=== PATIENT | female | born 1940 | race Caucasian/White ===

== ENCOUNTER 2017-12-20 00:07 | Inpatient (IN) | payer MEDICARE, MEDICAID ==
[~2017-12-20] VITALS: Ht 162.6 cm; Wt 70.8 kg
[2017-12-20] VITALS (7 sets, daily range): BP systolic 101–139; BP diastolic 46–64
[~2017-12-20 00:07] MED LIST: ACTOS15 MG ORAL; ATENOLOL50 MG ORAL; CEPHALEXIN500 MG ORAL; MELOXICAM15 MG PO; METHAZOLAMIDE50 MG ORAL; NAMENDA10 MG ORAL; NKM; OMEPRAZOLE20 M2 ORAL; PROMETHAZINE-C118 M1 ORAL; SERTRALINE HCL25 MG ORAL; SIMVASTATIN20 MG ORAL
[2017-12-20] MEDS ORDERED: HYDROmorphone 1mg/ml Carpuject IVP ONE ×2 (00:15→02:30)
--- NOTE | 2017-12-20 00:15 | Emergency Room Report ---
History of Present Illness General Source: Patient, EMS Present Illness HPI Is a 77-year-old female with history of hypertension and diabetes. She presents with chief complaint of left hip pain. Onset was acute. Occurred just prior to arrival. She was walking from one room to another when she slipped and fell onto her left hip. Unable to get up. EMS said leg is shortened and rotated. They gave her 8 mg morphine and is not helping. Also with head injury. Did not pass out. Pain is 10 out of 10. Worse with movement. Allergies: Coded Allergies: No Known Allergies (Unverified , 05/20/16) Patient History Past Medical History: see triage record, old chart reviewed, DM, HTN Past Surgical History: other Pertinent Family History: none Social History: Denies: smoking Now: No Immunizations: other Reviewed Nursing Documentation: PMH: Agreed; PSxH: Agreed Nursing Documentation-PMH Hx Cardiac Problems: Yes Hx Hypertension: Yes Hx Diabetes: Yes Hx Cancer: No Hx Neurological Problems: No Review of Systems Eye: Denies: eye pain, blurred vision ENT: Denies: ear pain, nose congestion, throat swelling Respiratory: Denies: cough, shortness of breath Cardiovascular: Denies: chest pain, palpitations Gastrointestinal: Denies: abdominal pain, diarrhea, nausea, vomiting Musculoskeletal: Reports: joint pain; Denies: back pain Skin: Denies: rash Neurological: Denies: headache, numbness Endocrine: Denies: increased thirst, increased urine Hematologic/Lymphatic: Denies: easy bruising All Other Systems: negative except mentioned in HPI Physical Exam Sp02 EP Interpretation: reviewed, normal General Appearance: well appearing, no apparent distress, alert Head: normocephalic, other - hematoma to back of head Eyes: bilateral eye PERRL, bilateral eye EOMI ENT: hearing grossly normal, normal pharynx Neck: full range of motion, supple, no meningismus Respiratory: chest non-tender, lungs clear, normal breath sounds Cardiovascular #1: regular rate, rhythm, no murmur Gastrointestinal: normal bowel sounds, non tender, no mass, no organomegaly, no bruit, non-distended Musculoskeletal: back normal, other - left leg is shortened and internally rotated. Tender over left hip. Psychiatric: mood/affect normal Skin: warm/dry Medical Decision Making Diagnostic Impression: Primary Impression: Intertrochanteric fracture of left femur Qualified Codes: S72.142A - Displaced intertrochanteric fracture of left femur , initial encounter for closed fracture Additional Impression: Head injury, acute Qualified Codes: S09.90XA - Unspecified injury of head, initial encounter ER Course Patient presents with a fall with a head injury. Unfortunately she also has a left hip fracture. We'll admit for surgical evaluation. I contacted Dr. Wiggins for admission and Dr. Millan for ortho eval. Lab Results Impression labs unremarkable EKG Diagnostic Results Rate: normal Rhythm: NSR ST Segments: no acute changes Rhythm Strip Diag. Results Rhythm Strip Time: 02:51 EP Interpretation: yes Rate: 82 Rhythm: NSR, no PVC's, no ectopy Chest X-Ray Diagnostic Results Chest X-Ray Diagnostic Results : Chest X-Ray Ordered: Yes # of Views/Limited/Complete: 1 View Indication: Shortness of Breath EP Interpretation: Yes Interpretation: no consolidation, no effusion, no pneumothorax, no acute cardiopulmonary disease Impression: No acute disease Other X-Ray Diagnostic Results Other X-Ray Diagnostic Results #1: X-Ray ordered: pelvis x-ray # of Views/Limited Vs Complete: 1 View Indication: Pain EP Interpretation: Yes Interpretation: no dislocation, no soft tissue swelling, other - left intertroch fx. Impression: Other - left hip frx Electronically Signed by: Denny Grullon mD Other X-Ray Diagnostic Results #2: X-Ray ordered: Left hip xrays # of Views/Limited Vs Complete: 3 View Indication: Pain EP Interpretation: Yes Interpretation: no dislocation, no soft tissue swelling, other - displaced left IT frx Impression: Other - left hip fx Electronically Signed by: Denny Grullon MD CT/MRI/US Diagnostic Results CT/MRI/US Diagnostic Results : Imaging Test Ordered: Ct head Impression read by radiologist. Negative. Status: improved Disposition: ADMITTED INPATIENT Condition: Serious DENNY GRULLON M.D. Dec 20, 2017 00:15
[2017-12-20 00:50] LABS: BASOPHILS % (AUTO) 1.4 % (0.0-2.0); EOSINOPHILS % (AUTO) 1.9 % (0.0-3.0); HEMATOCRIT 35.4 % (37.0-47.0); HEMOGLOBIN 11.6 G/DL (12.0-16.0); LYMPHOCYTES % (AUTO) 29.5 % (20.0-45.0); MEAN CORPUSCULAR VOLUME 88 FL (80-99); MONOCYTES % (AUTO) 7.4 % (1.0-10.0); NEUTROPHILS % (AUTO) 59.8 % (45.0-75.0); PLATELET COUNT 257 K/UL (150-450); RED BLOOD COUNT 4.02 M/UL (4.20-5.40); RED CELL DISTRIBUTION WIDTH 14.6 % (11.6-14.8); WHITE BLOOD COUNT 10.8 K/UL (4.8-10.8)
[2017-12-20 00:56] LABS: ANION GAP 7 mmol/L (5-15); BLOOD UREA NITROGEN 22 mg/dL (7-18); CALCIUM 8.2 MG/DL (8.5-10.1); CARBON DIOXIDE 28 MMOL/L (21-32); CHLORIDE 100 MMOL/L (98-107); CREATININE 0.9 MG/DL (0.55-1.30); POTASSIUM 4.7 MMOL/L (3.5-5.1); SODIUM 135 MMOL/L (136-145)
[2017-12-20 03:41] LABS: APPEARANCE,URINE CLEAR; BILIRUBIN, URINE NEGATIVE (NEGATIVE); COLOR,URINE PALE YELLOW; GLUCOSE, URINE (UA) NEGATIVE (NEGATIVE); KETONES,URINE NEGATIVE (NEGATIVE); LEUKOCYTE ESTERASE ,URINE NEGATIVE (NEGATIVE); NITRITE,URINE NEGATIVE (NEGATIVE); PH,URINE 6.5 (4.5-8.0); PROTEIN,URINE NEGATIVE (NEGATIVE); UROBILINOGEN,URINE NORMAL MG/DL (0.0-1.0)
[2017-12-20] MEDS ORDERED: Promethazine/Codeine 5ml UD ORAL PRN (06:00)
[2017-12-20] MEDS ORDERED: Cephalexin 500mg cap ORAL SCH (06:00)
[2017-12-20] MEDS: D5NS 1,000 ML IV SCH ×2 (06:24→19:56)
[2017-12-20] MEDS: NovoLOG Insulin Flexpen SUBQ SCH ×4 (06:58→21:08)
--- NOTE | 2017-12-20 08:15 | History and Physical Report ---
DATE OF ADMISSION: 12/20/2017 CHIEF COMPLAINT: Left hip fracture. HISTORY OF PRESENT ILLNESS: The patient is a 77-year-old female. She has a history of hypertension and diabetes, was ambulated into the bathroom when she felt dizzy and fell. She had pain in the left hip after she fell and presented to the emergency room. On evaluation there, she had a x-ray showed intertrochanteric fracture of the left hip. The patient did require pain medications, Orthopedics consultation was obtained. The patient is now admitted for further surgical evaluation. PAST MEDICAL HISTORY: As above. PAST SURGICAL HISTORY: Includes prior left knee surgery. CURRENT MEDICATIONS: Reconciled and reviewed. ALLERGIES: None. FAMILY HISTORY: None. SOCIAL HISTORY: Negative for tobacco, ethanol, or drugs. REVIEW OF SYSTEMS: GENERAL: No fever or chills. HEENT: No headaches or visual changes. CARDIOPULMONARY: No chest pain or shortness of breath. GASTROINTESTINAL: No nausea or vomiting. GENITOURINARY: No urgency or frequency. MUSCULOSKELETAL: Positive left hip pain. NEUROLOGIC: No evidence of seizures. PHYSICAL EXAMINATION: VITAL SIGNS: Temperature 98, pulse 70, respirations 16, and blood pressure 136/52. GENERAL: The patient is well-developed, well-nourished, in no apparent distress. She is awake, alert, and oriented x4. NECK: Supple. There is no lymphadenopathy. No jugular venous distention. HEART: Regular rate and rhythm. No murmurs, rubs, or gallops. LUNGS: Clear to auscultation bilaterally. ABDOMEN: Soft, nontender, and nondistended. EXTREMITIES: Without clubbing or cyanosis. The patient has severe pain and has minimal range of motion in the left hip due to pain. LABORATORY AND DIAGNOSTIC DATA: Labs, white count was 10, hemoglobin 11, hematocrit 35, and platelets 257. Sodium 135 and potassium 4.7. Troponin 0.001. Coags are normal. EKG showed sinus rhythm without any acute ST-T wave changes. Urinalysis is negative. ASSESSMENT: This is a pleasant female with history of diabetes and hypertension, admitted with mechanical fall and a left hip fracture. 1. Possible left hip fracture. 2. Diabetes. 3. Hypertension. PLAN: Continue outpatient cardiac regimen. Monitor blood sugars. The patient is medically stable for surgery if needed. She has average risk for age and sex. The patient received DVT prophylaxis and she should be continued on her antihypertensive regimen. Monitor blood sugars closely in the perioperative period. Basim Wiggins M.D. DR: BUCK JOB#: [id number] CC:
[2017-12-20] MEDS: Meloxicam 15 MG TAB ORAL SCH (08:40)
[2017-12-20] MEDS: Sertraline 50mg tab ORAL SCH (08:41)
[2017-12-20] MEDS: Memantine 10mg tab ORAL SCH ×2 (08:41→18:04)
--- NOTE | 2017-12-20 08:59 | Consultation ---
Consult Note Consult Note Patient seen/evaluated. Left IT hip fracture. Plan on ORIF in am. 2D echo performed in 2016 with good EF. No significant interval Cardiac change. Appreciate medicine optimizing the patient and clearing for surgery. Full consult dictated. Thank you PAVEL ROGERS Dec 20, 2017 08:59
--- NOTE | 2017-12-20 09:20 | Diagnostic Imaging Report ---
Indication: Head trauma. Headache Technique: Contiguous 5 mm thick transaxial imaging of the head obtained in a Siemens Sensation [address] scanner. Soft tissue and bone windows generated. Automatic Exposure Control was utilized. Total Dose length Product (DLP): 1309.[address] Dose Index Volume (CTDIvol): 70.38 mGy Comparison: none Findings: The size and configuration of the cortical sulci, basal cisterns, and ventricles are within normal limits for age. There is no mass effect, midline shift, or edema identified. There is no evidence of acute hemorrhage or abnormal intra-axial or extra-axial fluid collections. The bones and soft tissues are unremarkable. Impression: No mass effect, edema or acute bleed. [facility] has communicated the preliminary results to the Emergency Department. Their findings are largely concordant with this report. The CT scanner at [facility] is accredited by the [employer] and the scans are performed using dose optimization techniques as appropriate to a performed exam including Automatic Exposure control.
--- NOTE | 2017-12-20 09:37 | Diagnostic Imaging Report ---
Indications: hip pain Findings: Two views of the left hip and pelvis were obtained. There is acute trochanteric fracture of the left hip with involvement of the greater trochanter in a comminuted fashion. Bones are osteopenic. The left hip joint appears abnormally narrowed and. There is remodeling and deformity of the femoral head which could be on the basis of previous AVN. There is a slight acetabular protrusio. The right hip is unremarkable. The sacrum is largely obscured by bowel gas. Vascular calcifications are present. IMPRESSION: Comminuted intertrochanteric fracture of the left hip
--- NOTE | 2017-12-20 09:38 | Diagnostic Imaging Report ---
Indication: Chest pain and trauma Comparison: 05/24/2016 A single view chest radiograph was obtained. Findings: Interstitial edema is suspected. The heart is enlarged. Aorta is moderately calcified. Bones are osteopenic. IMPRESSION: Suspect CHF. Please correlate clinically
--- NOTE | 2017-12-20 10:50 | Diagnostic Imaging Report ---
Indication: Cough Comparison: 12/30/2017 at 01:19 A single view chest radiograph was obtained. Findings: No definite infiltrate or pulmonary vascular congestion identified currently. Vascular edema has resolved since the last study. The heart is enlarged. The aorta is mildly enlarged consistent with atherosclerotic vascular disease. The bones are osteopenic. Impression: No acute disease
--- NOTE | 2017-12-20 14:59 | Anethesia Preoperative Eval ---
Anesthesia Pre-op PMH/ROS General Date of Evaluation: Dec 20, 2017 Time of Evaluation: 11:10 Anesthesiologist: Justyna ASA Score: ASA 3 Mallampati Score Class I : Soft palate, uvula, fauces, pillars visible Class II: Soft palate, uvula, fauces visible Class III: Soft palate, base of uvula visible Class IV: Only hard plate visible Mallampati Classification: Class II Surgeon: Monty Diagnosis: Left hip fracture Surgical Procedure: ORIF left hip Family History: no anesthesia problems Allergies: Coded Allergies: No Known Allergies (Unverified , 05/20/16) Medications: see eMAR Past Medical History Cardiovascular: Reports: HTN; Denies: CAD, [place], valve dz, arrhythmia, other Pulmonary: Denies: asthma, COPD, PAM, other Gastrointestinal/Genitourinary: Denies: GERD, CRI, ESRD, other Neurologic/Psychiatric: Reports: dementia; Denies: CVA, depression/anxiety, TIA, other Endocrine: Reports: DM; Denies: hypothyroidism, steroids, other HEENT: Reports: cataract (L), cataract (R) Hematology/Immune: Denies: anemia, DVT, bleeding disorder, other Musculoskeletal/Integumentary: Denies: OA, RA, DJD, DDD, edema, other PMH Narrative: D, HTN, hypercholesterolemia PSxH Narrative: Varicose vein stripping, eye surgery, knee surgery as per report Anesthesia Pre-op Phys. Exam Physician Exam Last Vital Signs Date Time Temp Pulse Resp B/P (MAP) Pulse Ox O2 Delivery O2 Flow Rate FiO2 12/20/17 12:01 98.5 62 20 101/46 94 Room Air 98.5 Constitutional: NAD Neurologic: CN 2-12 intact Cardiovascular: RRR, no M/R/G Respiratory: CTA Gastrointestinal: S/NT/ND Airway Exam Mallampati Score: Class II MO: full ROM: full Dentures: upper Anesthesia Pre-op A/P Labs Hematology Test 12/20/17 00:36 White Blood Count 10.8 K/UL (4.8-10.8) Red Blood Count 4.02 M/UL (4.20-5.40) L Hemoglobin 11.6 G/DL (12.0-16.0) L Hematocrit 35.4 % (37.0-47.0) L Mean Corpuscular Volume 88 FL (80-99) Mean Corpuscular Hemoglobin 28.7 PG (27.0-31.0) Mean Corpuscular Hemoglobin Concent 32.7 G/DL (32.0-36.0) Red Cell Distribution Width 14.6 % (11.6-14.8) Platelet Count 257 K/UL (150-450) Mean Platelet Volume 6.4 FL (6.5-10.1) L Neutrophils (%) (Auto) 59.8 % (45.0-75.0) Lymphocytes (%) (Auto) 29.5 % (20.0-45.0) Monocytes (%) (Auto) 7.4 % (1.0-10.0) Eosinophils (%) (Auto) 1.9 % (0.0-3.0) Basophils (%) (Auto) 1.4 % (0.0-2.0) Coagulation Test 12/20/17 00:36 Prothrombin Time 10.0 SEC (9.30-11.50) Prothromb Time International Ratio 1.0 (0.9-1.1) Activated Partial Thromboplast Time 29 SEC (23-33) Chemistry Test 12/20/17 00:36 Sodium Level 135 MMOL/L (136-145) L Potassium Level 4.7 MMOL/L (3.5-5.1) Chloride Level 100 MMOL/L (98-107) Carbon Dioxide Level 28 MMOL/L (21-32) Anion Gap 7 mmol/L (5-15) Blood Urea Nitrogen 22 mg/dL (7-18) H Creatinine 0.9 MG/DL (0.55-1.30) Estimat Glomerular Filtration Rate mL/min (>60) Glucose Level 130 MG/DL (74-106) H Hemoglobin A1c 6.6 % (4.3-6.0) H Calcium Level 8.2 MG/DL (8.5-10.1) L Troponin I 0.001 ng/mL (0.000-0.056) Risk Assessment & Plan Assessment: HTN, DM female for ORIF left hip Plan: GA, LMA vs ETT. Atilio Jansen MD Dec 20, 2017 14:59
--- NOTE | 2017-12-20 19:30 | Consultation ---
DATE OF CONSULTATION: 12/20/2017 ORTHOPEDIC CONSULTATION CONSULTING PHYSICIAN: Riley Millan M.D. REQUESTING PHYSICIAN: Basim Wiggins M.D. REASON FOR CONSULTATION: Left hip fracture. BRIEF HISTORY: The patient is a pleasant 77-year-old female, who sustained a mechanical fall and had a left hip intertrochanteric fracture and she was admitted to [facility] for definitive care. She was seen by Internal Medicine and she was cleared for surgery. She has a 2D echo from 2016 which shows 55% to 60% ejection fraction and no ventricular dysfunction. PAST MEDICAL HISTORY: Significant for history of hypertension and diabetes. PAST SURGICAL HISTORY: Includes left prior knee surgery. MEDICATIONS: Please see chart. This was reviewed and reconciled. ALLERGIES: No known drug allergies. SOCIAL HISTORY: She does not smoke or drink. She was independent ambulator prior to fall. PHYSICAL EXAMINATION: GENERAL: She is a pleasant lady, cooperative with examination. MUSCULOSKELETAL: The left leg is shortened and rotated. She has some pain with flexion and extension. She is able to wiggle her toes. There is no skin breakdown. DIAGNOSTIC DATA: X-ray of left hip was reviewed. There is evidence of intertrochanteric fracture. 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 IMPRESSION: Left hip intertrochanteric fracture. PLAN: At this time, I discussed with the patient. I explained to her my findings. I recommend we proceed with left hip open reduction and internal fixation with a short gamma nail. Risks, benefits, and complications of surgery were discussed with her. She understood and agreed with the treatment plan. The risk of infection, bleeding, neurovascular complication, possible malunion, possible nonunion, possible need for further surgery down the line, and other complication was discussed with her and she understood and agreed with treatment plan. We will go ahead and proceed with surgery tomorrow once she is cleared. All questions were answered.. Riley Millan M.D. DR: Sangita JOB#: [id number] CC:
[2017-12-20] MEDS: Latanoprost 0.005% Opth 2.5ml Soln BOTH EYES SCH (21:06)
[2017-12-21] VITALS (13 sets, daily range): BP systolic 106–169; BP diastolic 51–81
[2017-12-21] MEDS: NovoLOG Insulin Flexpen SUBQ SCH ×4 (06:30→21:11)
[2017-12-21] MEDS: D5NS 1,000 ML IV SCH (06:35)
--- NOTE | 2017-12-21 07:27 | General Progress Note ---
Assessment/Plan Problem List: (1) Hypertension ICD Codes: I10 - Essential (primary) hypertension SNOMED: 77403451 (2) Diabetes ICD Codes: E11.9 - Type 2 diabetes mellitus without complications SNOMED: 27721383 Qualifiers: (3) Intertrochanteric fracture of left femur ICD Codes: S72.142A - Displaced intertrochanteric fracture of left femur, initial encounter for closed fracture SNOMED: 467185797, [id number] Qualifiers: Qualified Codes: S72.142A - Displaced intertrochanteric fracture of left femur, initial encounter for closed fracture Status: stable Assessment/Plan stable for surgery cont bp rx cont diabetes rx pain control Subjective ROS Limited/Unobtainable: No Constitutional: Reports: no symptoms HEENT: Reports: no symptoms Cardiovascular: Reports: no symptoms Respiratory: Reports: no symptoms Gastrointestinal/Abdominal: Reports: no symptoms Genitourinary: Reports: no symptoms Neurologic/Psychiatric: Reports: no symptoms Endocrine: Reports: no symptoms Hematologic/Lymphatic: Reports: no symptoms Allergies: Coded Allergies: No Known Allergies (Unverified , 05/20/16) All Systems: reviewed and negative except above Subjective x/o hip pain. no cp/sob. npo for surgery today Objective Last 24 Hour Vital Signs Date Time Temp Pulse Resp B/P (MAP) Pulse Ox O2 Delivery O2 Flow Rate FiO2 12/21/17 05:28 98.8 71 18 119/59 92 Room Air 98.8 12/20/17 20:00 99.7 68 18 139/64 94 Room Air 99.7 12/20/17 18:29 97.6 12/20/17 16:00 97.6 64 20 114/55 94 Room Air 97.6 12/20/17 12:01 98.5 62 20 101/46 94 Room Air 98.5 12/20/17 08:41 72 131/54 12/20/17 07:54 98.3 72 20 131/54 94 Room Air 98.3 Intake and Output 12/20/17 12/21/17 19:00 07:00 Intake Total 75 ml 1550 ml Output Total 1800 ml Balance 75 ml -250 ml Intake Oral 800 ml IV Total 75 ml 750 ml Output Urine Total 1800 ml Height (Feet): 5 Height (Inches): 4.00 Weight (Pounds): 156 General Appearance: WD/WN, alert Cardiovascular: regular rhythm Respiratory/Chest: lungs clear, normal breath sounds, no respiratory distress Abdomen: normal bowel sounds, non tender, soft, no organomegaly Neurologic: upkeep mechanic II-XII grossly normal, alert, oriented x 3, responsive CELSA BELTRAN Dec 21, 2017 07:27
[2017-12-21] MEDS: Memantine 10mg tab ORAL SCH ×2 (09:00→17:37)
[2017-12-21] MEDS: Sertraline 50mg tab ORAL SCH (09:00)
[2017-12-21] MEDS: Meloxicam 15 MG TAB ORAL SCH (09:00)
[2017-12-21] MEDS ORDERED: Sterile Water Irrig 1000ml IRRIG ONE (12:00)
[2017-12-21] MEDS ORDERED: LR 1000ml ONE (12:00)
[2017-12-21] MEDS ORDERED: fentaNYL 100 mcg/2 mL IV ONE (12:00)
[2017-12-21] MEDS ORDERED: Propofol 200mg/20ml IV ONE (12:00)
[2017-12-21] MEDS ORDERED: Midazolam 2mg/2ml Inj ONE (12:00)
--- NOTE | 2017-12-21 12:10 | Pre-Procedure Note/Attestation ---
Pre-Procedure Note/Attestation Complete Prior to Procedure Planned Procedure: left Procedure Narrative: left hip ORIF Indications for Procedure Pre-Operative Diagnosis: Left hip IT fracture Attestation I attest that I discussed the nature of the procedure; its benefits; risks and complications; and alternatives (and the risks and benefits of such alternatives ), prior to the procedure, with the patient (or the patient's legal in store representative). I attest that, if there was a reasonable possibility of needing a blood transfusion, the patient (or the patient's legal in store representative) was given the [facility] standardized written summary, pursuant to the Atilio Angeline Blood Safety Act ([place] Health and Safety Code # 1645, as amended). I attest that I re-evaluated the patient just prior to the surgery and that there has been no change in the patient's H&P, except as documented below: NONE PAVEL ROGERS Dec 21, 2017 12:10
[2017-12-21] MEDS ORDERED: Norco 5mg/325mg tab ORAL PRN (12:15)
[2017-12-21] MEDS ORDERED: Milk of Magnesia 30ml Ud ORAL PRN (12:15)
[2017-12-21] MEDS: Docusate 100mg cap ORAL SCH ×2 (13:00→17:37)
[2017-12-21] MEDS: LR 1000ml 1,000 ML IVLG SCH (13:14)
[2017-12-21] MEDS ORDERED: Midazolam 2mg/2ml Inj IVP PRN (13:15)
[2017-12-21] MEDS ORDERED: Ketorolac 30mg Inj IV PRN (13:15)
[2017-12-21] MEDS ORDERED: DiphenhydrAMINE 50mg/ml Inj IVP PRN (13:15)
--- NOTE | 2017-12-21 13:37 | Brief Operative Note ---
Immediate Post Operative Note Operative Note Chief Complaint: left hip pain Pre-op Diagnosis: left hip fx Procedure: left hip ORIF Post-op Diagnosis: same as pre-op Findings: consistent w/pre-op dx studies Surgeon: md steven [employer] Commissioner: tawana buchanan Anesthesiologist: md will Anesthesia: general Specimen: none Complications: none Condition: stable Fluids: ns Estimated Blood Loss: minimal Drains: none Implant(s) used?: Yes - DULCE Oneill Dec 21, 2017 13:37
--- NOTE | 2017-12-21 13:54 | Immediate Post-Op Evaluation ---
Immediate Post-Op Evalulation Immediate Post-Op Evalulation Procedure: ORIF of L femoral Fx. Date of Evaluation: Dec 21, 2017 Time of Evaluation: 13:53 IV Fluids: 800 Blood Products: none Estimated Blood Loss: 100 Urinary Output: 200 Blood Pressure Systolic: 156 Blood Pressure Diastolic: 76 Pulse Rate: 62 Respiratory Rate: 22 O2 Sat by Pulse Oximetry: 99 Temperature (Fahrenheit): 98.6 Pain Score (1-10): 2 Nausea: No Vomiting: No Complications none Patient Status: reacts, patent, none Hydration Status: adequate MIKAYLA MCKAY M.D. Dec 21, 2017 13:54
[2017-12-21] MEDS: Hydromorphone 0.5mg/0.5ml inj IVP PRN ×2 (14:05→14:25)
[2017-12-21] MEDS ORDERED: Bupivacaine 0.5% Inj 30 ml vial INJ ONE (14:06)
[2017-12-21] MEDS ORDERED: NeoSporin Gu Irrig 1ml Amp IRRIG ONE (14:06)
[2017-12-21] MEDS ORDERED: Bacitracin 50000 Units Vial IRRIG ONE (14:06)
--- NOTE | 2017-12-21 14:52 | Diagnostic Imaging Report ---
Indication: Fracture, intraoperative imaging Technique: Intraoperative images Comparison: 12/20/2017 Findings: Intraoperative images document surgical repair with compression screw and medullary ara of previously described left hip intertrochanteric fracture Impression: Intraoperative imaging, as described
[2017-12-21] MEDS ORDERED: D5NS 1000ml IV ONE (15:17)
--- NOTE | 2017-12-21 15:36 | Diagnostic Imaging Report ---
Indication: Postoperative, status post post ORIF Technique: One view of the pelvis Comparison: 12/20/2017 Findings: Medullary ara and compression screw are seen reducing previously demonstrated left hip intertrochanteric fracture. Hardware appears well aligned. There are degenerative changes of left hip joint. Retained air from the surgical exposure seen within soft tissues. Batista catheter is present Impression: Postoperative left hip, no unusual features
[2017-12-21] MEDS: D5 1/2NS w/KCl 20mEq 1,000 ML IV SCH (16:02)
--- NOTE | 2017-12-21 16:45 | Operative Note - Dictated ---
DATE OF OPERATION: 12/21/2017 PREOPERATIVE DIAGNOSES: 1. Left hip peritrochanteric fracture with fracture of the greater trochanter. 2. Left hip arthritis. POSTOPERATIVE DIAGNOSES: 1. Left hip peritrochanteric fracture with fracture of the greater trochanter. 2. Left hip arthritis. PROCEDURE: Left hip open reduction and internal fixation using a short 125-degree gamma nail with distal screw fixation. SURGEON: Riley Millan M.D. ASSOCIATE RESEARCH SCIENTIST: Adriane Messer PA-C. ANESTHESIOLOGIST: Dr. Seymour. ANESTHESIA: Spinal anesthesia. ESTIMATED BLOOD LOSS: Less than 150 mL. COMPLICATIONS: None. BRIEF HISTORY: The patient is a pleasant 77-year-old female who has had ongoing left hip pain after a fall. She was ambulatory prior to that. She did not seem to have significant symptoms with left hip prior to this fall. After full discussion of the risks and benefits of the surgery and complications associated with it including infection, bleeding, neurovascular complication, possible malunion, possible nonunion, most likely need for total hip arthroplasty down the line after the fracture is healed if she is symptomatic in left hip, she opted for surgical treatment as described above. It should be noted that this is a total hip arthroplasty. Primary total hip arthroplasty was considered as part of this operation, however, due to the significant peritrochanteric nature of the fracture and the complexity of the total hip arthroplasty with this type of fracture, it was chosen to proceed with an ORIF and allow the bones to heal, and schedule elective total hip arthroplasty down the line if the patient is symptomatic of left hip and once the fracture is completely healed, approximately 6 to 12 months after the fracture's fixation. OPERATIVE PROCEDURE: The patient was brought to the operating table and was placed supine. All pressure points were well padded. Spinal anesthesia was induced. The patient was placed on the fracture table with the right leg in a well-leg rod and left leg in traction. Left leg was placed in traction and was adducted and slightly internally rotated. Image intensifier was brought in and the fracture was reduced anatomically. At this point, a time-out was performed, preoperative antibiotics were given, and the standard incision was made 1.5 cm proximal to the greater trochanter. The incision was taken through subcutaneous tissue and the gluteal fascia was opened. At this point, a K-wire was placed through the tip of the greater trochanter into the neck, into the shaft of the femur. An entry was obtained through the greater trochanter into the metaphyseal region, diaphyseal region. At this point, the image intensifier was used to assure that the guidewire was in place and the position of the entry point was checked and rechecked both on AP and lateral, and appeared to be perfect. At this point, a 125-degree short gamma nail was then placed. The nail was seated well. At this point, a guidewire was placed through the lateral cortex through the nail through the neck into the head. The position was checked on AP and lateral, and appeared to be perfect. Measurements were made. A 95-mm lag screw appeared to be the right size. A step drill was used to drill and 95-degree lag screw was placed in and was locked in using a setscrew proximally. The setscrew was then turned half a turn to allow for compression. Once this was completed, a distal locking screw was placed through the jig and a 32.5 mm screw was then placed in without any complication through a separate stab wound incision. Once this was completed, wounds were thoroughly irrigated, final images were obtained and the fracture was then easily reduced anatomically, and all the hardware were in excellent position. AP and lateral views were obtained and the nail was in perfect position and lag screws were in great position. Locking screws were in good position. The fracture was reduced anatomically. The wounds were thoroughly irrigated using copious amount of fluid. The gluteal fascia was closed using #1 Vicryl suture. Subcutaneous tissue was closed using 2-0 Vicryl suture. Skin was closed using 3-0 Monocryl suture. Sterile dressing was applied. The patient tolerated the procedure well without any complication, was taken to recovery room in stable condition. All lap counts and instrument counts were correct. Riley Millan M.D. DR: Sangita JOB#: [id number] CC:
[2017-12-21] MEDS: HYDROcodone/Acetamin 7.5/325 tab ORAL PRN (21:04)
[2017-12-21] MEDS: Latanoprost 0.005% Opth 2.5ml Soln BOTH EYES SCH (21:05)
[2017-12-21] MEDS: ceFAZolin sod 2 GM in D5W 110 ML IV SCH (21:05)
[2017-12-22] VITALS (7 sets, daily range): BP systolic 96–126; BP diastolic 43–84
[2017-12-22] MEDS: D5 1/2NS w/KCl 20mEq 1,000 ML IV SCH (04:53)
[2017-12-22] MEDS: ceFAZolin sod 2 GM in D5W 110 ML IV SCH (04:58)
[2017-12-22] MEDS: NovoLOG Insulin Flexpen SUBQ SCH ×4 (06:40→21:50)
--- NOTE | 2017-12-22 08:14 | Orthopedic Progress Note ---
Orthopedic - Progress Note Subjective Symptoms: improved Objective Vital Signs Last 24 Hour Vital Signs Date Time Temp Pulse Resp B/P (MAP) Pulse Ox O2 Delivery O2 Flow Rate FiO2 12/22/17 08:00 99.6 68 17 116/58 98 Room Air 99.6 12/22/17 04:00 98.4 66 18 115/59 97 Room Air 98.4 12/22/17 00:00 97.8 66 17 96/52 98 Room Air 97.8 12/21/17 20:00 99.6 62 18 107/59 94 Room Air 99.6 12/21/17 18:00 98.0 63 20 118/64 96 98.0 12/21/17 16:00 98.0 58 18 114/51 99 Room Air 98.0 12/21/17 15:00 98.9 61 17 109/61 99 98.9 12/21/17 14:50 98.6 12/21/17 14:40 98.6 60 15 136/61 100 Nasal Cannula 3.0 98.6 12/21/17 14:35 98.6 12/21/17 14:26 98.5 12/21/17 14:25 64 11 169/81 99 Nasal Cannula 3.0 12/21/17 14:25 98.5 12/21/17 14:15 67 16 137/58 99 Nasal Cannula 3.0 12/21/17 14:05 98.5 12/21/17 14:05 63 13 138/56 98 Nasal Cannula 3.0 12/21/17 13:54 62 16 146/55 98 Nasal Cannula 3.0 12/21/17 13:54 209.5 62 22 99 12/21/17 13:49 56 15 123/52 100 Simple Mask 6.0 12/21/17 13:44 98.4 57 13 158/67 100 Simple Mask 6.0 98.4 I&O Intake and Output 12/21/17 12/22/17 19:00 07:00 Intake Total 1802.5 ml 1175 ml Output Total 550 ml 500 ml Balance 1252.5 ml 675 ml Intake Oral 240 ml 240 ml IV Total 1562.5 ml 935 ml Output Urine Total 450 ml 500 ml Estimated Blood Loss 100 ml Wound: clean, dry, intact Drains: none Neuro Status: normal Vascular Status: normal Additional Comments xray reviewed Assessment Post-op Diagnosis POD 1 Procedure Performed left hip ORIF Plan Plan: PT, discharge plan - f/u Dr. Millan as outpt in 2 weeks DULCE BOWEN Dec 22, 2017 08:14
--- NOTE | 2017-12-22 08:37 | 48 Hour Post Anesthesia Eval ---
Post Anesthesia Evaluation Procedure: ORIF of L femoral Fx. Date of Evaluation: Dec 22, 2017 Time of Evaluation: 08:10 Blood Pressure Systolic: 116 0: 58 Pulse Rate: 68 Respiratory Rate: 17 Temperature (Fahrenheit): 99.6 O2 Sat by Pulse Oximetry: 98 Airway: patent Nausea: No Vomiting: No Pain Intensity: 0 Hydration Status: adequate Cardiopulmonary Status: at baseline Mental Status/LOC: patient returned to baseline Post-Anesthesia Complications: 0 Follow-up care needed: N/A - further care as per primary team ALEX LA M.D. Dec 22, 2017 08:37
[2017-12-22 08:43] LABS: BASOPHILS % (AUTO) 0.6 % (0.0-2.0); EOSINOPHILS % (AUTO) 1.3 % (0.0-3.0); HEMATOCRIT 26.1 % (37.0-47.0); HEMOGLOBIN 8.6 G/DL (12.0-16.0); LYMPHOCYTES % (AUTO) 13.3 % (20.0-45.0); MEAN CORPUSCULAR VOLUME 90 FL (80-99); MONOCYTES % (AUTO) 11.3 % (1.0-10.0); NEUTROPHILS % (AUTO) 73.4 % (45.0-75.0); PLATELET COUNT 185 K/UL (150-450); RED BLOOD COUNT 2.89 M/UL (4.20-5.40); RED CELL DISTRIBUTION WIDTH 14.7 % (11.6-14.8)
--- NOTE | 2017-12-22 08:43 | General Progress Note ---
Assessment/Plan Problem List: (1) Hypertension ICD Codes: I10 - Essential (primary) hypertension SNOMED: 00186323 (2) Diabetes ICD Codes: E11.9 - Type 2 diabetes mellitus without complications SNOMED: 18731118 Qualifiers: (3) Intertrochanteric fracture of left femur ICD Codes: S72.142A - Displaced intertrochanteric fracture of left femur, initial encounter for closed fracture SNOMED: 980170818, 0658152 Qualifiers: Qualified Codes: S72.142A - Displaced intertrochanteric fracture of left femur, initial encounter for closed fracture Status: stable, progressing Assessment/Plan pain rx cont bp rx cont diabetes rx dvt prophyalxis per ortho preference Subjective ROS Limited/Unobtainable: No Constitutional: Reports: malaise, weakness HEENT: Reports: no symptoms Cardiovascular: Reports: no symptoms Respiratory: Reports: no symptoms Gastrointestinal/Abdominal: Reports: no symptoms Genitourinary: Reports: no symptoms Neurologic/Psychiatric: Reports: no symptoms Endocrine: Reports: no symptoms Hematologic/Lymphatic: Reports: no symptoms Allergies: Coded Allergies: No Known Allergies (Unverified , 05/20/16) All Systems: reviewed and negative except above Subjective s/p uncomplicated hip orif. only c/o post op pain. Objective Last 24 Hour Vital Signs Date Time Temp Pulse Resp B/P (MAP) Pulse Ox O2 Delivery O2 Flow Rate FiO2 12/22/17 08:37 211.3 68 17 98 12/22/17 08:16 99.6 12/22/17 08:00 99.6 68 17 116/58 98 Room Air 99.6 12/22/17 04:00 98.4 66 18 115/59 97 Room Air 98.4 12/22/17 00:00 97.8 66 17 96/52 98 Room Air 97.8 12/21/17 20:00 99.6 62 18 107/59 94 Room Air 99.6 12/21/17 18:00 98.0 63 20 118/64 96 98.0 12/21/17 16:00 98.0 58 18 114/51 99 Room Air 98.0 12/21/17 15:00 98.9 61 17 109/61 99 98.9 12/21/17 14:50 98.6 12/21/17 14:40 98.6 60 15 136/61 100 Nasal Cannula 3.0 98.6 4/10/18 14:35 98.6 12/21/17 14:26 98.5 12/21/17 14:25 64 11 169/81 99 Nasal Cannula 3.0 12/21/17 14:25 98.5 12/21/17 14:15 67 16 137/58 99 Nasal Cannula 3.0 12/21/17 14:05 98.5 12/21/17 14:05 63 13 138/56 98 Nasal Cannula 3.0 12/21/17 13:54 62 16 146/55 98 Nasal Cannula 3.0 12/21/17 13:54 209.5 62 22 99 12/21/17 13:49 56 15 123/52 100 Simple Mask 6.0 12/21/17 13:44 98.4 57 13 158/67 100 Simple Mask 6.0 98.4 Intake and Output 12/21/17 12/22/17 19:00 07:00 Intake Total 1802.5 ml 1175 ml Output Total 550 ml 500 ml Balance 1252.5 ml 675 ml Intake Oral 240 ml 240 ml IV Total 1562.5 ml 935 ml Output Urine Total 450 ml 500 ml Estimated Blood Loss 100 ml Laboratory Tests 12/22/17 07:35: White Blood Count [Pending], Red Blood Count [Pending], Hemoglobin [Pending], Hematocrit [Pending], Mean Corpuscular Volume [Pending], Mean Corpuscular Hemoglobin [Pending], Mean Corpuscular Hemoglobin Concent [Pending], Red Cell Distribution Width [Pending], Platelet Count [Pending], Mean Platelet Volume [ Pending], Neutrophils (%) (Auto) [Pending], Lymphocytes (%) (Auto) [Pending], Monocytes (%) (Auto) [Pending], Eosinophils (%) (Auto) [Pending], Basophils (%) (Auto) [Pending], Sodium Level [Pending], Potassium Level [Pending], Chloride Level [Pending], Carbon Dioxide Level [Pending], Blood Urea Nitrogen [Pending], Creatinine [Pending], Estimat Glomerular Filtration Rate [Pending], Glucose Level [Pending], Calcium Level [Pending] Height (Feet): 5 Height (Inches): 4.00 Weight (Pounds): 156 General Appearance: WD/WN, alert Neck: supple Cardiovascular: regular rhythm Respiratory/Chest: lungs clear, normal breath sounds Abdomen: normal bowel sounds, non tender, soft Edema: no edema noted Arm (L), no edema noted Arm (R), no edema noted Leg (L), no edema noted Leg (R), no edema noted Pedal (L), no edema noted Pedal (R), no edema noted Generalized Neurologic: alert, responsive CELSA BELTRAN Dec 22, 2017 08:43
[2017-12-22] MEDS: Memantine 10mg tab ORAL SCH ×2 (08:58→17:26)
[2017-12-22] MEDS: Docusate 100mg cap ORAL SCH ×3 (08:58→17:24)
[2017-12-22] MEDS: Sertraline 50mg tab ORAL SCH (08:59)
[2017-12-22] MEDS: Meloxicam 15 MG TAB ORAL SCH (08:59)
[2017-12-22] MEDS ORDERED: celeBREX 200mg Cap **SURGERY PATIENTS ONLY ORAL SCH (09:00)
[2017-12-22] MEDS: Enoxaparin 40mg Inj SUBQ SCH (09:03)
[2017-12-22 09:10] LABS: ANION GAP 6 mmol/L (5-15); BLOOD UREA NITROGEN 15 mg/dL (7-18); CALCIUM 7.8 MG/DL (8.5-10.1); CARBON DIOXIDE 25 MMOL/L (21-32); CHLORIDE 102 MMOL/L (98-107); CREATININE 0.9 MG/DL (0.55-1.30); POTASSIUM 4.9 MMOL/L (3.5-5.1); SODIUM 133 MMOL/L (136-145)
[2017-12-22] MEDS: Latanoprost 0.005% Opth 2.5ml Soln BOTH EYES SCH (21:49)
[2017-12-23 00:29] VITALS: BP 107/68
[2017-12-23 04:00] VITALS: BP 128/59
[2017-12-23] MEDS: NovoLOG Insulin Flexpen SUBQ SCH ×4 (06:07→21:08)
[2017-12-23 07:13] LABS: HEMATOCRIT 23.9 % (37.0-47.0); HEMOGLOBIN 7.9 G/DL (12.0-16.0); MEAN CORPUSCULAR VOLUME 88 FL (80-99); PLATELET COUNT 165 K/UL (150-450); RED CELL DISTRIBUTION WIDTH 13.8 % (11.6-14.8); WHITE BLOOD COUNT 12.4 K/UL (4.8-10.8)
[2017-12-23 08:00] VITALS: BP 133/60
--- NOTE | 2017-12-23 08:16 | General Progress Note ---
Assessment/Plan Problem List: (1) Hypertension ICD Codes: I10 - Essential (primary) hypertension SNOMED: 04063913 (2) Diabetes ICD Codes: E11.9 - Type 2 diabetes mellitus without complications SNOMED: 78785581 Qualifiers: (3) Intertrochanteric fracture of left femur ICD Codes: S72.142A - Displaced intertrochanteric fracture of left femur, initial encounter for closed fracture SNOMED: 392886929, 1362836 Qualifiers: Qualified Codes: S72.142A - Displaced intertrochanteric fracture of left femur, initial encounter for closed fracture Status: stable, progressing Assessment/Plan pain rx cont bp rx cont diabetes rx check cxr and ua lovenox for dvt prophylaxis snf placement Subjective ROS Limited/Unobtainable: No Constitutional: Reports: fever, malaise, weakness HEENT: Reports: no symptoms Cardiovascular: Reports: no symptoms Respiratory: Reports: no symptoms Gastrointestinal/Abdominal: Reports: no symptoms Genitourinary: Reports: no symptoms Neurologic/Psychiatric: Reports: no symptoms Endocrine: Reports: no symptoms Hematologic/Lymphatic: Reports: no symptoms Allergies: Coded Allergies: No Known Allergies (Unverified , 05/20/16) All Systems: reviewed and negative except above Subjective c/o hip pain- mostly controlled with current meds. +fevers yesterday. no cough or diarrhea. no chest pain . Objective Last 24 Hour Vital Signs Date Time Temp Pulse Resp B/P (MAP) Pulse Ox O2 Delivery O2 Flow Rate FiO2 12/23/17 04:00 98.3 77 19 128/59 99 Nasal Cannula 2.0 98.3 12/23/17 00:29 99.8 79 19 107/68 99 Nasal Cannula 2.0 99.8 12/22/17 20:55 101.3 85 20 110/65 90 101.3 12/22/17 16:00 99.6 74 20 126/52 98 Nasal Cannula 3.0 99.6 12/22/17 12:00 99.6 65 18 113/43 98 Nasal Cannula 3.0 99.6 12/22/17 09:02 70 107/84 12/22/17 09:00 70 108/84 96 Nasal Cannula 3.0 12/22/17 08:46 99.6 12/22/17 08:37 211.3 68 17 98 12/22/17 08:16 99.6 Intake and Output 12/22/17 12/23/17 19:00 07:00 Intake Total 1275 ml 300 ml Output Total 300 ml Balance 975 ml 300 ml Intake Oral 750 ml 300 ml IV Total 525 ml Output Urine Total 300 ml # Voids 2 2 # Bowel Movements 2 Laboratory Tests 12/23/17 06:05: White Blood Count 12.4H, Red Blood Count 2.70L, Hemoglobin 7.9L, Hematocrit 23.9L, Mean Corpuscular Volume 88, Mean Corpuscular Hemoglobin 29.3, Mean Corpuscular Hemoglobin Concent 33.2, Red Cell Distribution Width 13.8, Platelet Count 165, Mean Platelet Volume 7.3, Neutrophils (%) (Auto) , Lymphocytes (%) ( Auto) , Monocytes (%) (Auto) , Eosinophils (%) (Auto) , Basophils (%) (Auto) , Differential Total Cells Counted 100, Neutrophils % (Manual) 76H, Lymphocytes % (Manual) 11L, Monocytes % (Manual) 13H, Eosinophils % (Manual) 0, Basophils % ( Manual) 0, Band Neutrophils 0, Platelet Estimate Adequate, Platelet Morphology Normal, Hypochromasia 1+, Microcytosis 2+ Height (Feet): 5 Height (Inches): 4.00 Weight (Pounds): 156 Objective General Appearance: WD/WN, alert Neck: supple Cardiovascular: regular rhythm Respiratory/Chest: lungs clear, normal breath sounds Abdomen: normal bowel sounds, non tender, soft Edema: no edema noted Arm (L), no edema noted Arm (R), no edema noted Leg (L), no edema noted Leg (R), no edema noted Pedal (L), no edema noted Pedal (R), no edema noted Generalized Neurologic: alert, responsive CELSA BELTRAN Dec 23, 2017 08:16
[2017-12-23] MEDS: Meloxicam 15 MG TAB ORAL SCH (08:48)
[2017-12-23] MEDS: Docusate 100mg cap ORAL SCH ×3 (08:49→18:18)
[2017-12-23] MEDS: Sertraline 50mg tab ORAL SCH (08:49)
[2017-12-23] MEDS: Enoxaparin 40mg Inj SUBQ SCH (08:50)
[2017-12-23] MEDS: Memantine 10mg tab ORAL SCH ×2 (09:02→18:18)
[2017-12-23 12:00] VITALS: BP 128/78
--- NOTE | 2017-12-23 12:58 | Diagnostic Imaging Report ---
Indication: Cough Comparison: 12/20/2017 A single view chest radiograph was obtained. Findings: No definite infiltrate or pulmonary vascular congestion identified. The heart is enlarged. The aorta is mildly enlarged consistent with atherosclerotic vascular disease. The bones are osteopenic. Impression: No acute disease
[2017-12-23 16:00] VITALS: BP 124/51
[2017-12-23] MEDS ORDERED: Tubing IV Secondary IV ONE (16:12)
[2017-12-23 17:14] LABS: APPEARANCE,URINE CLEAR; BILIRUBIN, URINE NEGATIVE (NEGATIVE); COLOR,URINE PALE YELLOW; GLUCOSE, URINE (UA) NEGATIVE (NEGATIVE); KETONES,URINE NEGATIVE (NEGATIVE); LEUKOCYTE ESTERASE ,URINE NEGATIVE (NEGATIVE); NITRITE,URINE NEGATIVE (NEGATIVE); PH,URINE 6 (4.5-8.0); PROTEIN,URINE NEGATIVE (NEGATIVE); UROBILINOGEN,URINE NORMAL MG/DL (0.0-1.0)
[2017-12-23] MEDS: HYDROcodone/Acetamin 7.5/325 tab ORAL PRN (18:18)
[2017-12-23 20:24] VITALS: BP 133/53
[2017-12-23] MEDS: Latanoprost 0.005% Opth 2.5ml Soln BOTH EYES SCH (20:50)
[2017-12-24] VITALS: BP 123/79
[2017-12-24 04:00] VITALS: BP 127/75
[2017-12-24] MEDS: NovoLOG Insulin Flexpen SUBQ SCH ×3 (06:12→17:06)
[2017-12-24 08:00] VITALS: BP 127/53
[2017-12-24 08:16] LABS: BASOPHILS % (AUTO) 0.7 % (0.0-2.0); EOSINOPHILS % (AUTO) 3.2 % (0.0-3.0); HEMATOCRIT 24.9 % (37.0-47.0); HEMOGLOBIN 8.3 G/DL (12.0-16.0); LYMPHOCYTES % (AUTO) 12.8 % (20.0-45.0); MEAN CORPUSCULAR VOLUME 89 FL (80-99); MONOCYTES % (AUTO) 10.7 % (1.0-10.0); NEUTROPHILS % (AUTO) 72.6 % (45.0-75.0); PLATELET COUNT 204 K/UL (150-450); RED BLOOD COUNT 2.79 M/UL (4.20-5.40); RED CELL DISTRIBUTION WIDTH 14.3 % (11.6-14.8); WHITE BLOOD COUNT 9.6 K/UL (4.8-10.8)
[2017-12-24] MEDS: Sertraline 50mg tab ORAL SCH (08:56)
[2017-12-24] MEDS: Memantine 10mg tab ORAL SCH ×2 (08:56→18:16)
[2017-12-24] MEDS: Docusate 100mg cap ORAL SCH ×3 (08:56→18:16)
[2017-12-24] MEDS: Meloxicam 15 MG TAB ORAL SCH (08:57)
[2017-12-24] MEDS: Enoxaparin 40mg Inj SUBQ SCH (09:03)
[2017-12-24 11:59] VITALS: BP 102/59
[2017-12-24] MEDS ORDERED: LOVENOX10 M4 SUBQ (14:31)
[2017-12-24 16:00] VITALS: BP 120/48
[2017-12-24] MEDS ORDERED: D5NS 1000ml IV ONE (20:05)
--- NOTE | 2017-12-25 04:45 | Discharge Summary ---
DATE OF ADMISSION: 12/20/2017 DATE OF DISCHARGE: 12/24/2017 ADMITTING DIAGNOSES: 1. Left hip fracture. 2. Hypertension. 3. Diabetes. DISCHARGE DIAGNOSES: 1. Left hip fracture. 2. Hypertension. 3. Diabetes. HOSPITAL COURSE: The patient is a pleasant female, who sustained a mechanical fall and fractured left hip and she was admitted. She underwent an uncomplicated ORIF of the hip, which she tolerated well. On discharge, she was stable. She will be discharged to a detention facility for rehabilitation. DISCHARGE MEDICATIONS: Please see discharge list for discharge medications. DIET: Cardiac, diabetic diet. ACTIVITY: Ad-italo. FOLLOWUP: The patient to follow up in one to two days at detention facility. Basim Wiggins M.D. DR: ANURAG JOB#: [id number] CC:
--- NOTE | 2017-12-27 21:35 | Cardiology Report ---
APPROVED REPORT EKG Measurement Heart [id number] Normal sinus rhythm Voltage criteria for left ventricular hypertrophy Abnormal ECG
== END 2017-12-24 20:06 | DRG 308 ==
LOC: EDBD 00:07 → EDSEX 00:07 → EMR 00:15 → EDBEDREQ 02:59 → 3E 03:21 → EDBEDREQ 03:27
PROC: 0QS704Z Reposition Left Upper Femur with Internal Fixation Device, Open Approach (ICD-10-PCS; principal; 2017-12-21 11:30)
DX: S72.142A Displaced intertrochanteric fracture of left femur, initial encounter for closed fracture (principal); E11.9 Type 2 diabetes mellitus without complications; I10 Essential (primary) hypertension; W19.XXXA Unspecified fall, initial encounter; Y92.009 Unspecified place in unspecified non-institutional (private) residence as the place of occurrence of the external cause
CPT/HCPCS: 36415; 70450; 71045; 72170; 73502; 80048; 81001; 81003; 82962; 83036; 84484; 85007; 85025; 85610; 85730; 86850; 86900; 86901; 93005; 94760; 99285; J1815; J2250; J2405

== ENCOUNTER 2019-08-02 21:27 | Inpatient (IN) | payer MEDICARE, MEDICAID ==
[~2019-08-02] VITALS: Ht 157.5 cm; Wt 74.8 kg
[~2019-08-02 21:27] MED LIST changes: +LOVENOX10 M4 SUBQ
[2019-08-02] MEDS ORDERED: Solu-MEDROL 125mg Inj IVP ONE (21:30)
--- NOTE | 2019-08-02 21:32 | Emergency Room Report ---
History of Present Illness General Chief Complaint: Dyspnea/Respdistress Source: Patient Present Illness [facility] Disclaimer: Please note that this report is being documented using [employer] technology. This can lead to erroneous entry secondary to incorrect interpretation by the dictating instrument. HPI: 79-year-old female who presents for evaluation of shortness of breath. She has a history of COPD and questionable asthma. She is a former smoker but quit many years ago. Describes worsening exertional dyspnea and a productive cough for the past few days. Denies fevers but reports chills. Shortness of breath is worse in the cold weather and with exertion and relieved by rest. Denies chest pain. She was having difficulty breathing and EMS was called at her home. They found bilateral wheezing but saturating 97%. She was given a breathing treatment en route with improvement in her symptoms. She was never hypoxic. Reports persistent feeling of shortness of breath and tachypnea. PMH: COPD, hypertension, hyperlipidemia, diabetes, possible asthma Allergies: None reported Social Hx: Former smoker Allergies: Coded Allergies: No Known Allergies (Unverified , 05/20/16) Nursing Documentation-PMH Past Medical History: No History, Except For Hx Cardiac Problems: Yes - High Chlosterol Hx Hypertension: Yes Hx Diabetes: Yes Hx Cancer: No Hx Neurological Problems: No Review of Systems All Other Systems: negative except mentioned in HPI Physical Exam Vital Signs Date Time Temp Pulse Resp B/P (MAP) Pulse Ox O2 Delivery O2 Flow Rate FiO2 08/02/19 21:27 98.8 118 20 172/112 (132) 99 Nasal Cannula 4.0 General: Awake and alert, moderate respiratory distress HEENT: NC/AT. EOMI. receiving breathing treatment on arrival Cardiovascular: Tachycardic. S1 and S2 normal. No murmur appreciated Resp: Tachypnea, increased work of breathing. Intermittent cough with bilateral clavicles. Bilateral wheezes inspiratory and expiratory Abdomen: Abdomen is soft, nondistended. Nontender Skin: Intact. No abrasions, laceration or rash over the exposed skin MSK: Normal tone and bulk. Moving all extremities. No obvious deformity. Neuro: Awake and alert. Mentating appropriately. Procedures Critical Care Time Critical Care Time Total critical care time: Approximately 31 minutes Due to a high probability of clinically significant, life threatening deterioration, the patient required the highest level of preparedness to intervene emergently and I personally spent this critical care time directly and personally managing the patient. This critical care time included obtaining a history, examining the patient, pulse oximetry, ordering and reviewing studies , ordering treatments, evaluating response to treatment and updating management plan as needed, frequent reassessment and discussion with other providers as well as arranging for ultimate disposition. This critical to care time was performed to assess and manage the high probability of life-threatening deterioration that could result in multiorgan failure. This critical care time is separate from the separately billable procedures and treating other patients. Medical Decision Making Diagnostic Impression: Primary Impression: Respiratory distress Additional Impression: CHF exacerbation ER Course 79-year-old female presents for evaluation of shortness of breath and exertional dyspnea over the past few days with a productive cough. Differential includes was not limited to pneumonia, CHF, COPD, asthma, ACS, angina, GERD, viral syndrome. We will start broad metabolic, infectious and cardiac work-up. Chest x-ray and EKG are ordered. She is receiving breathing treatments and will continue to receive them. Steroids also ordered. Arrives tachycardic. May require admission. Laboratory Tests Test 08/02/19 21:40 08/02/19 22:15 08/02/19 23:03 White Blood Count 12.8 K/UL (4.8-10.8) H Red Blood Count 4.84 M/UL (4.20-5.40) Hemoglobin 13.4 G/DL (12.0-16.0) Hematocrit 41.1 % (37.0-47.0) Mean Corpuscular Volume 85 FL (80-99) Mean Corpuscular Hemoglobin 27.7 PG (27.0-31.0) Mean Corpuscular Hemoglobin Concent 32.6 G/DL (32.0-36.0) Red Cell Distribution Width 13.2 % (11.6-14.8) Platelet Count 262 K/UL (150-450) Mean Platelet Volume 6.2 FL (6.5-10.1) L Neutrophils (%) (Auto) 53.6 % (45.0-75.0) Lymphocytes (%) (Auto) 32.7 % (20.0-45.0) Monocytes (%) (Auto) 11.5 % (1.0-10.0) H Eosinophils (%) (Auto) 1.1 % (0.0-3.0) Basophils (%) (Auto) 1.1 % (0.0-2.0) Sodium Level 137 MMOL/L (136-145) Potassium Level 3.7 MMOL/L (3.5-5.1) Chloride Level 102 MMOL/L (98-107) Carbon Dioxide Level 27 MMOL/L (21-32) Anion Gap 8 mmol/L (5-15) Blood Urea Nitrogen 15 mg/dL (7-18) Creatinine 1.0 MG/DL (0.55-1.30) Estimate Glomerular Filtration Rate mL/min (>60) Glucose Level 179 MG/DL (74-106) H Calcium Level 8.3 MG/DL (8.5-10.1) L Total Bilirubin 0.5 MG/DL (0.2-1.0) Aspartate Amino Transferase (AST) 25 U/L (15-37) Alanine Aminotransferase (ALT) 29 U/L (12-78) Alkaline Phosphatase 109 U/L (46-116) Troponin I 0.000 ng/mL (0.000-0.056) Pro-B-Type Natriuretic Peptide 963 pg/mL (0-125) H Total Protein 8.5 G/DL (6.4-8.2) H Albumin 4.1 G/DL (3.4-5.0) Globulin 4.4 g/dL Albumin/Globulin Ratio 0.9 (1.0-2.7) L Urine Color Pale yellow Urine Appearance Slightly cloudy Urine pH 6.5 (4.5-8.0) Urine Specific [place] 1.010 (1.005-1.035) Urine Protein 2+ (NEGATIVE) H Urine Glucose (UA) Negative (NEGATIVE) Urine Ketones Negative (NEGATIVE) Urine Blood 3+ (NEGATIVE) H Urine Nitrite Negative (NEGATIVE) Urine Bilirubin Negative (NEGATIVE) Urine Urobilinogen Normal MG/DL (0.0-1.0) Urine Leukocyte Esterase Negative (NEGATIVE) Urine RBC 10-15 /HPF (0 - 2) H Urine WBC 2-4 /HPF (0 - 2) Urine Squamous Epithelial Cells Moderate /LPF (NONE/OCC) H Urine Bacteria Few /HPF (NONE) Urine Mucus Few /LPF (NONE/OCC) H Arterial Blood pH 7.361 (7.350-7.450) Arterial Blood Partial Pressure CO2 39.0 mmHg (35.0-45.0) Arterial Blood Partial Pressure O2 71.3 mmHg (75.0-100.0) L Arterial Blood HCO3 21.6 mmol/L (22.0-26.0) L Arterial Blood Oxygen Saturation 94.0 % (95-100) L Arterial Blood Base Excess -3.5 (-2-2) L Miki Test Positive Microbiology Date/Time Source Procedure Growth Status 08/02/19 21:40 Nasal Nares - Final Complete 08/02/19 21:40 Nasal Nares - Final Complete EKG Diagnostic Results EKG Time: 21:45 Rate: tachycardiac Rhythm: NSR ST Segments: no acute changes Other Impression Sinus rhythm, slight making it difficult to interpret. Normal intervals. Left axis deviation. Rhythm Strip Diag. Results Rhythm Strip Time: 21:45 EP Interpretation: yes Rate: 110s Rhythm: NSR, no PVC's, no ectopy Chest X-Ray Diagnostic Results Chest X-Ray Diagnostic Results : Chest X-Ray Ordered: Yes # of Views/Limited/Complete: 1 View Indication: Shortness of Breath EP Interpretation: Yes Interpretation: no consolidation, no effusion, no pneumothorax, other - Interstitial edema bilaterally Impression: Other - Bilateral interstitial edema Electronically Signed by: Electronically signed by Dr. Michael Guardado Reevaluation Time: 23:26 Last Vital Signs Date Time Temp Pulse Resp B/P (MAP) Pulse Ox O2 Delivery O2 Flow Rate FiO2 08/02/19 21:27 98.8 118 20 172/112 (132) 99 Nasal Cannula 4.0 Reevaluation Impression Elevated BNP and chest x-ray consistent with bilateral interstitial edema and acute CHF exacerbation. Patient has received further breathing treatments but remains tachycardic and slightly tachypneic. Oxygenating well however her arterial blood gas shows decreased PO2. She is feeling somewhat better and will be diuresed with Lasix. She will require admission on telemetry. Disposition: ADMITTED INPATIENT Condition: Serious Michael Guardado MD Aug 02, 2019 21:32
[2019-08-02] MEDS ORDERED: ATORVASTATIN CA20 MG ORAL (21:35)
[2019-08-02] MEDS ORDERED: CILOSTAZOL100 MG PO (21:35)
[2019-08-02 21:52] VITALS: BP 172/112
[2019-08-02 21:52] LABS: BASOPHILS % (AUTO) 1.1 % (0.0-2.0); EOSINOPHILS % (AUTO) 1.1 % (0.0-3.0); HEMATOCRIT 41.1 % (37.0-47.0); HEMOGLOBIN 13.4 G/DL (12.0-16.0); LYMPHOCYTES % (AUTO) 32.7 % (20.0-45.0); MEAN CORPUSCULAR VOLUME 85 FL (80-99); MONOCYTES % (AUTO) 11.5 % (1.0-10.0); NEUTROPHILS % (AUTO) 53.6 % (45.0-75.0); PLATELET COUNT 262 K/UL (150-450); RED BLOOD COUNT 4.84 M/UL (4.20-5.40); RED CELL DISTRIBUTION WIDTH 13.2 % (11.6-14.8); WHITE BLOOD COUNT 12.8 K/UL (4.8-10.8)
[2019-08-02 22:05] LABS: ANION GAP 8 mmol/L (5-15); BLOOD UREA NITROGEN 15 mg/dL (7-18); CALCIUM 8.3 MG/DL (8.5-10.1); CARBON DIOXIDE 27 MMOL/L (21-32); CHLORIDE 102 MMOL/L (98-107); POTASSIUM 3.7 MMOL/L (3.5-5.1); SODIUM 137 MMOL/L (136-145)
[2019-08-02] MEDS: Ipratropium 0.02% Inh Soln 2.5ml UD HHN SCH ×3 (22:05→22:29)
[2019-08-02] MEDS: Albuterol ud Inhalation HHN SCH ×3 (22:05→22:29)
[2019-08-02 22:12] LABS: ALANINE AMINOTRANSFERASE 29 U/L (12-78); ALBUMIN 4.1 G/DL (3.4-5.0); ALBUMIN/GLOBULIN RATIO 0.9 (1.0-2.7); ALKALINE PHOSPHATASE 109 U/L (46-116); ASPARTATE AMINO TRANSFERASE 25 U/L (15-37); BILIRUBIN,TOTAL 0.5 MG/DL (0.2-1.0)
[2019-08-02 22:56] LABS: BILIRUBIN, URINE NEGATIVE (NEGATIVE); COLOR,URINE PALE YELLOW; GLUCOSE, URINE (UA) NEGATIVE (NEGATIVE); KETONES,URINE NEGATIVE (NEGATIVE); LEUKOCYTE ESTERASE ,URINE NEGATIVE (NEGATIVE); NITRITE,URINE NEGATIVE (NEGATIVE); PH,URINE 6.5 (4.5-8.0); PROTEIN,URINE 2+ (NEGATIVE); UROBILINOGEN,URINE NORMAL MG/DL (0.0-1.0)
[2019-08-02 23:03] LABS: APPEARANCE,URINE SLIGHTLY CLOUDY
[2019-08-03] VITALS (7 sets, daily range): BP systolic 110–155; BP diastolic 55–71
[2019-08-03] MEDS: NovoLOG Insulin Flexpen SUBQ SCH ×4 (06:35→20:57)
[2019-08-03] MEDS: Albuterol/Ipratropium 3ml neb HHN SCH ×3 (06:39→19:57)
[2019-08-03] MEDS ORDERED: Azithromycin 250mg tab ORAL SCH (08:15)
[2019-08-03] MEDS: Sertraline 50mg tab ORAL SCH (09:15)
[2019-08-03] MEDS: Memantine 10mg tab ORAL SCH ×2 (09:16→17:29)
[2019-08-03] MEDS: Cilostazol 100mg tab ORAL SCH ×2 (09:16→17:29)
[2019-08-03] MEDS: Heparin 5000 units/ml inj SUBQ SCH ×2 (09:23→20:53)
--- NOTE | 2019-08-03 12:33 | Diagnostic Imaging Report ---
Indication: Dyspnea Comparison: 12/23/2017 A single view chest radiograph was obtained. Findings: No definite infiltrate or pulmonary vascular congestion identified. The heart is enlarged. The aorta is mildly enlarged consistent with atherosclerotic vascular disease. The bones are osteopenic. Impression: No acute disease
--- NOTE | 2019-08-03 14:15 | History and Physical Report ---
DATE OF ADMISSION: 08/03/2019 CHIEF COMPLAINT: Shortness of breath. HISTORY OF PRESENT ILLNESS: The patient is a pleasant 79-year-old female. She presented to the emergency room with complaints of two to three days of progressive cough, congestion, shortness of breath, and headaches. According to the patient, she was well until several days prior to admission. She notes the onset of mostly dry cough, but later it became slightly productive with clear phlegm. She has had shaking episodes, but denies any myla fevers or chills. She denies any ill contacts. On evaluation in the emergency room, the patient had an x-ray that showed possible interstitial edema. She was noted to be wheezing. She was given steroids and breathing treatments and is now admitted for further evaluation and care. PAST MEDICAL HISTORY: As above. She has a history of hypertension, diabetes, hyperlipidemia, gastritis, and osteoarthritis. PAST SURGICAL HISTORY: Includes left hip surgery. CURRENT MEDICATIONS: Reconciled and reviewed. ALLERGIES: None. FAMILY HISTORY: None. SOCIAL HISTORY: The patient denies tobacco, ethanol, or drugs. REVIEW OF SYSTEMS: GENERAL: No fevers or chills. HEENT: No headaches or visual changes. CARDIOPULMONARY: No chest pain. Positive cough and shortness of breath. GASTROINTESTINAL: No nausea or vomiting. GENITOURINARY: No urgency or frequency. MUSCULOSKELETAL: Positive joint pains. NEUROLOGIC: No history of seizures. PHYSICAL EXAMINATION: VITAL SIGNS: Temperature 99, pulse 104, respirations 19, and blood pressure 155/71. GENERAL: The patient is well developed, in no apparent distress. HEART: Regular rate and rhythm. LUNGS: Significant diminished breath sounds with a few scattered wheezes. ABDOMEN: Soft, nontender, and nondistended. EXTREMITIES: Without clubbing, cyanosis, or edema. The patient does have joint deformities consistent with OA. LABORATORY DATA: UA was clear. White count was 13,000, hemoglobin 13, and platelet count 262,000. Sodium 137, potassium 3.7, chloride 102, bicarb 27, BUN 15, and creatinine 1. Natriuretic peptide level was 963. ASSESSMENT: This is a pleasant female with history of diabetes, hypertension, hyperlipidemia, and questionable chronic obstructive pulmonary disease, admitted with complaints of shortness of breath secondary to congestive heart failure, chronic obstructive pulmonary disease exacerbation, could not rule out bronchitis. PLAN: 1. Respiratory treatments. 2. Cautious diuresis. 3. Consider intravenous steroids. 4. Antibiotic therapy for bronchitis. 5. We will check an influenza swab to rule out influenza. 6. Continue outpatient diabetic regimen. 7. Cardiology followup for adjustment of the patient's cardiac medications. 8. DVT and stress ulcer prophylaxes. Basim Wiggins M.D. DR: JENNIFER JOB#: [id number] CC:
[2019-08-03] MEDS ORDERED: Atorvastatin 20mg tab ORAL SCH (21:00)
[2019-08-04] VITALS: BP 136/66
[2019-08-04] MEDS: Albuterol/Ipratropium 3ml neb HHN SCH ×4 (01:21→19:27)
[2019-08-04 04:00] VITALS: BP 134/67
--- NOTE | 2019-08-04 04:45 | Consultation ---
DATE OF CONSULTATION: 08/03/2019 CONSULTING PHYSICIAN: Charisse Pizarro M.D. HISTORY OF PRESENT ILLNESS: This is an 79-year-old female with a history of hypertension, diabetes, Hyperlipidemia, gastritis, osteoarthritis, and depression who has been admitted to the hospital due to cough and congestion. The patient was in bed. No acute distress. She has episodes of anxiety. She is very pleasant. Able to provide history. Answers the questions. She knows some [place]. PAST PSYCHIATRY HISTORY: Depression and anxiety. She is on Zoloft. PAST MEDICAL HISTORY: Significant for left hip surgery, hypertension, diabetes, hyperlipidemia, gastritis, and osteoarthritis. ALLERGIES: No known drug allergies. SUBSTANCE ABUSE HISTORY: No known history of illicit drug use or alcohol. Nonsmoker. MENTAL STATUS EXAMINATION: Alert and oriented times self, place, and situation. Albanian speaking. Mood is anxious. Affect is constricted. Congruent with mood. Thought process is concrete. Thought content, no suicidal or homicidal ideations. ASSESSMENT: AXIS I: Major depressive disorder. Anxiety disorder. AXIS II: Deferred. AXIS III: As above. AXIS IV: Low. AXIS V: 25. PLAN: 1. The patient will be continued on Zoloft 25 mg in the morning. 2. Continue the memantine. 3. Provide the patient with reality orientation and supportive therapy. Charisse Pizarro M.D. DR: FREDDY JOB#: [id number] CC:
--- NOTE | 2019-08-04 05:30 | Progress Note ---
DATE: 08/03/2019 CARDIOLOGY PROGRESS NOTE SUBJECTIVE: The patient is still congested with cough and some shortness of breath. She does feel better from yesterday. She did receive IV diuretics. She did have negative fluid balance. The patient had an echocardiogram today that revealed normal ejection fraction, and mild to moderate aortic stenosis with valve area of 1.3. There was also tricuspid regurgitation of mild severity with no pulmonary hypertension. OBJECTIVE: VITAL SIGNS: Blood pressure 121/57, pulse 103, respirations 18, and oxygen saturation 96% on two liters. LUNGS: Coarse breath sounds. Rhonchi. Few wheezes. CARDIAC: Regular rhythm and rate. Normal S1, S2. A 1/6 systolic murmur at base. ABDOMEN: Soft. EXTREMITIES: No edema. LABORATORY DATA: White count 12.8 yesterday, hemoglobin 13.4. IMPRESSION: 1. Acute diastolic congestive heart failure, clinically improved. 2. Degenerative aortic valve disease with mild to moderate stenosis. 3. Community-acquired upper respiratory tract infection and possible pneumonia. 4. Hypertensive heart disease with hypertensive urgency, resolved. 5. Paroxysmal bronchospasm. 6. Type 2 diabetes mellitus. PLAN: 1. Diuresis. 2. Titration of antihypertensives. 3. Antimicrobials. 4. Steroid therapy per primary care physician. 5. DVT prophylaxis. Rafita Ham M.D. DR: TADEO JOB#: [id number] CC:
--- NOTE | 2019-08-04 06:00 | Consultation ---
DATE OF CONSULTATION: 08/03/2019 CARDIOLOGY CONSULTATION CONSULTING PHYSICIAN: Rafita Ham M.D. REQUESTING PHYSICIAN: Basim Wiggins M.D. REASON FOR CONSULTATION: Acute congestive heart failure. HISTORY OF PRESENT ILLNESS: This is an 79-year-old female. She has had two to three days of progressive cough, congestion, shortness of breath. She has had some sinus congestion. She has not noted any leg swelling or chest pain. She did note some shaking, but no fevers or chills and is unaware of any ill contacts. She was seen in the emergency room. She was treated for wheezing with bronchodilators by inhalation and intravenous steroids, but also was noted to have radiographic and evidence of pulmonary venous congestion and an elevated natriuretic peptide assay prompting this consultation for evaluation of congestive heart failure. PAST MEDICAL HISTORY: Hypertension, type 2 diabetes mellitus, hyperlipidemia, osteoarthritis, gastritis, hip fracture, status post left ORIF in 2018. ALLERGIES: None. FAMILY HISTORY: Noncontributory. MEDICATIONS: Prior to admission, reviewed and reconciled. SOCIAL HISTORY: Negative for smoking, alcohol, or substance abuse. REVIEW OF SYSTEMS: No loss of vision or hearing. No history of irregular heartbeats, rheumatic heart disease, or endocarditis. No history of heart attack. No history of stroke. No history of thyroid disorder. Diabetes is managed with oral therapy. No frequency or dysuria. No history of abnormal blood clotting. PHYSICAL EXAMINATION: VITAL SIGNS: Initial blood pressure 172/112 in the emergency room with heart rate 118, respiratory rate 20, and she is afebrile. Subsequently, blood pressure was recorded as 148/67, pulse 105, respiratory rate 20, and temperature 99.9. HEENT: Oropharynx clear. NECK: Supple. Jugular venous pressure slightly elevated. LUNGS: With coarse breath sounds and rhonchi. CARDIAC: Regular rhythm. Rapid rate. Normal S1, S2 with no murmur, rub, or gallop. ABDOMEN: Soft and nontender. EXTREMITIES: With trace dependent edema. NEUROLOGIC: Nonfocal. LABORATORY AND DIAGNOSTIC DATA: White count 12.8, hemoglobin 13.4. Sodium 137, potassium 3.7, bicarb 27, BUN 15, creatinine 1, glucose 179. Pro-natriuretic peptide 963. Troponin negative. Urinalysis with 10 to 15 red cells, 2 to 4 white cells. Chest x-ray, pulmonary venous congestion. IMPRESSION: 1. Acute upper respiratory infection and possible pneumonia. 2. Acute respiratory insufficiency. 3. Acute diastolic congestive heart failure. 4. Secondary sinus tachycardia. 5. Type 2 diabetes mellitus with hyperglycemia. 6. Paroxysmal bronchospasm. 7. Hypertensive urgency, improving. PLAN: 1. Respiratory hygiene. 2. Panculture. 3. Antimicrobials. 4. Diuresis with intravenous loop diuretic. 5. Titrate antihypertensive regimen based on clinical parameters. 6. DVT prophylaxis. 7. Echocardiogram to assess left ventricular function. Rafita Ham M.D. DR: RAÚL JOB#: [id number] CC:
[2019-08-04] MEDS: NovoLOG Insulin Flexpen SUBQ SCH ×4 (06:40→21:00)
[2019-08-04 06:53] LABS: BASOPHILS % (AUTO) 0.4 % (0.0-2.0); EOSINOPHILS % (AUTO) 0.2 % (0.0-3.0); HEMATOCRIT 37.1 % (37.0-47.0); HEMOGLOBIN 12.4 G/DL (12.0-16.0); LYMPHOCYTES % (AUTO) 16.4 % (20.0-45.0); MEAN CORPUSCULAR VOLUME 86 FL (80-99); MONOCYTES % (AUTO) 13.9 % (1.0-10.0); NEUTROPHILS % (AUTO) 69.2 % (45.0-75.0); PLATELET COUNT 271 K/UL (150-450); RED BLOOD COUNT 4.31 M/UL (4.20-5.40); RED CELL DISTRIBUTION WIDTH 14.9 % (11.6-14.8)
[2019-08-04 07:58] LABS: ALANINE AMINOTRANSFERASE 33 U/L (12-78); ALBUMIN 3.7 G/DL (3.4-5.0); ALBUMIN/GLOBULIN RATIO 0.9 (1.0-2.7); ALKALINE PHOSPHATASE 89 U/L (46-116); ANION GAP 3 mmol/L (5-15); ASPARTATE AMINO TRANSFERASE 31 U/L (15-37); BILIRUBIN,TOTAL 0.4 MG/DL (0.2-1.0); BLOOD UREA NITROGEN 31 mg/dL (7-18); CALCIUM 8.5 MG/DL (8.5-10.1); CARBON DIOXIDE 32 MMOL/L (21-32); CHLORIDE 99 MMOL/L (98-107); CREATININE 1.6 MG/DL (0.55-1.30); POTASSIUM 4.3 MMOL/L (3.5-5.1); SODIUM 134 MMOL/L (136-145)
[2019-08-04 08:00] VITALS: BP 123/54
[2019-08-04] MEDS: Sertraline 50mg tab ORAL SCH (09:33)
[2019-08-04] MEDS: Cilostazol 100mg tab ORAL SCH ×2 (09:34→17:28)
[2019-08-04] MEDS: Memantine 10mg tab ORAL SCH ×2 (09:34→17:28)
[2019-08-04] MEDS: Heparin 5000 units/ml inj SUBQ SCH ×2 (09:38→20:56)
[2019-08-04 12:00] VITALS: BP 110/70
--- NOTE | 2019-08-04 13:58 | Cardiology Report ---
APPROVED REPORT EKG Measurement Heart [id number] Sinus tachycardia with arrhythmia and PAC's Left axis deviation Incomplete right bundle branch block Left ventricular hypertrophy with repolarization abnormality Significant artifact limits accuracy of interpretation Abnormal ECG
[2019-08-04 16:00] VITALS: BP 130/63
--- NOTE | 2019-08-04 19:00 | Progress Note ---
DATE: 08/04/2019 SUBJECTIVE: The patient is doing well. No behavior issues noted. Calm and cooperative. The patient has anxiety, depressed mood, anhedonia, worthlessness, decreased energy. In no acute distress. No pain. MENTAL STATUS EXAMINATION: Alert and oriented x3. Mood is neutral to anxious. Affect is constricted, congruent with mood. Thought process is linear. Thought content, no suicidal or homicidal ideation. Cognition is intact. Insight and judgment is fair. ASSESSMENT: 1. Major depressive disorder. 2. Anxiety disorder. PLAN: 1. We will continue the Zoloft. 2. Provide the patient with reality orientation and supportive therapy. Charisse Pizarro M.D. DR: ANDREW JOB#: [id number] CC:
[2019-08-04 20:00] VITALS: BP 134/74
--- NOTE | 2019-08-04 20:19 | General Progress Note ---
Assessment/Plan Problem List: (1) Bronchitis ICD Codes: J40 - Bronchitis, not specified as acute or chronic SNOMED: 78018282 (2) Acute renal failure ICD Codes: N17.9 - Acute kidney failure, unspecified SNOMED: 53132402 (3) Pneumonia ICD Codes: J18.9 - Pneumonia, unspecified organism SNOMED: 784586310 (4) Diabetes ICD Codes: E11.9 - Type 2 diabetes mellitus without complications SNOMED: 34044518 (5) Hypertension ICD Codes: I10 - Essential (primary) hypertension SNOMED: 97481453 (6) Respiratory distress ICD Codes: R06.00 - Dyspnea, unspecified SNOMED: 327638653 Status: stable, progressing Assessment/Plan: resp rx cough rx repeat cxr ivf dc lasix Subjective ROS Limited/Unobtainable: No Constitutional: Reports: weakness HEENT: Reports: no symptoms Cardiovascular: Reports: no symptoms Respiratory: Reports: cough, shortness of breath Gastrointestinal/Abdominal: Reports: no symptoms Genitourinary: Reports: no symptoms Neurologic/Psychiatric: Reports: no symptoms Endocrine: Reports: no symptoms Hematologic/Lymphatic: Reports: no symptoms Allergies: Coded Allergies: No Known Allergies (Unverified , 05/20/16) All Systems: reviewed and negative except above Subjective no events. c/o cough and congestion. no fevers. renal fxn worse. no nausea or vomiting Objective Last 24 Hour Vital Signs Date Time Temp Pulse Resp B/P (MAP) Pulse Ox O2 Delivery O2 Flow Rate FiO2 08/04/19 19:37 95 20 98 Nasal Cannula 2.0 28 08/04/19 19:27 94 Nasal Cannula 2.0 28 08/04/19 19:27 92 20 94 Nasal Cannula 2.0 28 08/04/19 16:00 98.4 93 17 130/63 (85) 94 08/04/19 13:20 73 20 97 Nasal Cannula 2.0 28 75 20 96 08/04/19 12:00 81 08/04/19 12:00 98.2 96 20 110/70 (83) 100 08/04/19 10:06 97.9 08/04/19 09:35 96 123/54 08/04/19 09:00 Nasal Cannula 2.0 08/04/19 08:00 104 08/04/19 08:00 98.1 96 18 123/54 (77) 92 08/04/19 07:08 89 20 99 Nasal Cannula 2.0 28 83 20 96 08/04/19 07:07 96 Nasal Cannula 2.0 28 08/04/19 04:00 97.9 87 20 134/67 (89) 94 08/04/19 04:00 98 08/04/19 01:21 95 20 99 Nasal Cannula 2.0 28 93 18 96 08/04/19 00:00 98.6 83 20 136/66 (89) 94 08/03/19 21:00 Nasal Cannula 2.0 Intake and Output 08/03/19 08/04/19 19:00 07:00 Intake Total 480 ml 180 ml Output Total 900 ml Balance -420 ml 180 ml Intake Oral 480 ml 180 ml Output Urine Total 900 ml Laboratory Tests 08/04/19 05:33: White Blood Count 15.0H, Red Blood Count 4.31, Hemoglobin 12.4, Hematocrit 37.1 , Mean Corpuscular Volume 86, Mean Corpuscular Hemoglobin 28.8, Mean Corpuscular Hemoglobin Concent 33.4, Red Cell Distribution Width 14.9H, Platelet Count 271, Mean Platelet Volume 6.2L, Neutrophils (%) (Auto) 69.2, Lymphocytes (%) (Auto) 16.4L, Monocytes (%) (Auto) 13.9H, Eosinophils (%) (Auto ) 0.2, Basophils (%) (Auto) 0.4, Sodium Level 134L, Potassium Level 4.3, Chloride Level 99, Carbon Dioxide Level 32, Anion Gap 3L, Blood Urea Nitrogen 31H, Creatinine 1.6#H, Estimat Glomerular Filtration Rate , Glucose Level 163H, Calcium Level 8.5, Magnesium Level 2.1, Total Bilirubin 0.4, Aspartate Amino Transf (AST/SGOT) 31, Alanine Aminotransferase (ALT/SGPT) 33, Alkaline Phosphatase 89, Pro-B-Type Natriuretic Peptide 1046H, Total Protein 7.9, Albumin 3.7, Globulin 4.2, Albumin/Globulin Ratio 0.9L Height (Feet): 5 Height (Inches): 2.00 Weight (Pounds): 165 General Appearance: WD/WN, alert Neck: supple Cardiovascular: normal rate Respiratory/Chest: chest wall non-tender, lungs clear, normal breath sounds Abdomen: normal bowel sounds, non tender, soft, no organomegaly Edema: no edema noted Arm (L), no edema noted Arm (R), no edema noted Leg (L), no edema noted Leg (R), no edema noted Pedal (L), no edema noted Pedal (R), no edema noted Generalized Basim Wiggins MD Aug 04, 2019 20:19
[2019-08-04] MEDS: Atorvastatin 20mg tab ORAL SCH (20:55)
--- NOTE | 2019-08-04 21:30 | Progress Note ---
DATE: 08/04/2019 CARDIOLOGY PROGRESS NOTE SUBJECTIVE: The patient still has cough and congestion. She does feel slightly better. Less short of breath. OBJECTIVE: VITAL SIGNS: Blood pressure 123/54, pulse 96, respirations 18, afebrile, and saturating 92% on 2 liters. Monitored rhythm had revealed sinus rhythm with no ectopy. LUNGS: Coarse breath sounds. Scattered rhonchi. CARDIAC: Regular rhythm and rate. Normal S1, S2 with a fourth heart sound and a 1/6 systolic apical murmur. ABDOMEN: Soft. EXTREMITIES: No edema. LABORATORY DATA: Cultures are negative. BUN 31 and creatinine 1.6. Sodium 134, potassium 4.3, bicarb 32. Pro-natriuretic peptide 1046. White count 15 and hemoglobin 12.4. IMPRESSION: 1. Bronchopneumonia. 2. Paroxysmal bronchospasm. 3. Clinically, the patient does not seem to have acute congestive heart failure. 4. Worsening renal parameters are likely due to diuresis. 5. Recommend hold additional diuresis. 6. Continue respiratory therapy. 7. Cautious use of beta-jevon. 8. Recheck chest radiograph and monitor cardiorenal parameters following a short amount of hydration. Rafita Ham M.D. DR: KOBY JOB#: [id number] CC:
[2019-08-04] MEDS: Guaifenesin/DM 10ml syrup ORAL PRN (21:48)
[2019-08-05] VITALS: BP 136/75
[2019-08-05] MEDS: Albuterol/Ipratropium 3ml neb HHN SCH ×4 (00:32→20:03)
[2019-08-05] MEDS: Guaifenesin/DM 10ml syrup ORAL PRN (03:53)
[2019-08-05 04:00] VITALS: BP 125/67
[2019-08-05] MEDS: NovoLOG Insulin Flexpen SUBQ SCH ×4 (06:07→19:44)
[2019-08-05] MEDS ORDERED: Promethazine/Codeine 5ml UD ORAL PRN (07:30)
[2019-08-05 07:59] LABS: ALANINE AMINOTRANSFERASE 28 U/L (12-78); ALBUMIN 3.3 G/DL (3.4-5.0); ALBUMIN/GLOBULIN RATIO 0.8 (1.0-2.7); ALKALINE PHOSPHATASE 87 U/L (46-116); ANION GAP 11 mmol/L (5-15); ASPARTATE AMINO TRANSFERASE 26 U/L (15-37); BILIRUBIN,TOTAL 0.6 MG/DL (0.2-1.0); BLOOD UREA NITROGEN 21 mg/dL (7-18); CALCIUM 7.8 MG/DL (8.5-10.1); CARBON DIOXIDE 27 MMOL/L (21-32); CHLORIDE 101 MMOL/L (98-107); CREATININE 1.1 MG/DL (0.55-1.30); POTASSIUM 3.6 MMOL/L (3.5-5.1); SODIUM 139 MMOL/L (136-145)
[2019-08-05 08:00] VITALS: BP 96/63
[2019-08-05] MEDS: Sertraline 50mg tab ORAL SCH (08:28)
[2019-08-05] MEDS: Memantine 10mg tab ORAL SCH ×2 (08:28→17:03)
[2019-08-05] MEDS: Cilostazol 100mg tab ORAL SCH ×2 (08:29→17:02)
[2019-08-05] MEDS: Heparin 5000 units/ml inj SUBQ SCH ×2 (08:33→19:45)
--- NOTE | 2019-08-05 08:47 | Diagnostic Imaging Report ---
EXAM: XR Chest, 1 View CLINICAL HISTORY: COPD TECHNIQUE: Frontal view of the chest. COMPARISON: Chest x-rays dated 08/02/19 and 12/23/17 FINDINGS: Lungs: Persistent diffusely prominent interstitial markings. The lungs are otherwise clear without focal consolidation. Pleural space: Unremarkable. The costophrenic angles are sharp. No visible pneumothorax. Heart: Unremarkable. No cardiomegaly. Mediastinum: Unremarkable. Bones/joints: Degenerative changes throughout the visualized spine and shoulder joints. Vasculature: Atherosclerotic calcifications within the aortic arch. IMPRESSION: Persistent diffusely prominent interstitial markings, not significantly changed compared to the prior exams. This is likely related to chronic senescent changes although differential diagnosis may also include mild bronchitis or interstitial pneumonitis.
[2019-08-05 12:00] VITALS: BP 132/76
--- NOTE | 2019-08-05 12:13 | General Progress Note ---
Assessment/Plan Problem List: (1) Bronchitis ICD Codes: J40 - Bronchitis, not specified as acute or chronic SNOMED: 33492529 (2) Acute renal failure ICD Codes: N17.9 - Acute kidney failure, unspecified SNOMED: 04557157 (3) Pneumonia ICD Codes: J18.9 - Pneumonia, unspecified organism SNOMED: 212351136 (4) Diabetes ICD Codes: E11.9 - Type 2 diabetes mellitus without complications SNOMED: 22804444 (5) Hypertension ICD Codes: I10 - Essential (primary) hypertension SNOMED: 77593221 (6) Respiratory distress ICD Codes: R06.00 - Dyspnea, unspecified SNOMED: 555626682 Status: stable, progressing Assessment/Plan: resp rx cough rx adjusted iv abx ivf dc lasix Subjective Allergies: Coded Allergies: No Known Allergies (Unverified , 05/20/16) Subjective no events. c/o cough and congestion. low grade fever. cxr with pneumonitis Objective Last 24 Hour Vital Signs Date Time Temp Pulse Resp B/P (MAP) Pulse Ox O2 Delivery O2 Flow Rate FiO2 08/05/19 08:30 Nasal Cannula 2.0 08/05/19 08:29 85 96/63 08/05/19 08:00 98.2 85 20 96/63 (74) 98 08/05/19 07:32 94 Nasal Cannula 2.0 28 08/05/19 07:20 74 20 98 Nasal Cannula 2.0 28 76 18 94 08/05/19 04:00 99.8 88 19 125/67 (86) 99 08/05/19 00:42 92 20 97 Nasal Cannula 2.0 28 08/05/19 00:32 93 20 95 Nasal Cannula 2.0 28 08/05/19 00:00 99.2 92 20 136/75 (95) 96 08/04/19 22:23 99.1 08/04/19 21:00 Nasal Cannula 2.0 08/04/19 20:00 100.5 98 20 134/74 (94) 95 08/04/19 19:37 95 20 98 Nasal Cannula 2.0 28 08/04/19 19:27 94 Nasal Cannula 2.0 28 08/04/19 19:27 92 20 94 Nasal Cannula 2.0 28 08/04/19 16:00 98.4 93 17 130/63 (85) 94 08/04/19 13:20 73 20 97 Nasal Cannula 2.0 28 75 20 96 Intake and Output 08/04/19 08/05/19 19:00 07:00 Intake Total 75 ml 810 ml Balance 75 ml 810 ml Intake Oral 360 ml IV Total 75 ml 450 ml # Voids 3 Laboratory Tests 08/05/19 06:50: Sodium Level 139, Potassium Level 3.6, Chloride Level 101, Carbon Dioxide Level 27, Anion Gap 11, Blood Urea Nitrogen 21H, Creatinine 1.1, Estimat Glomerular Filtration Rate , Glucose Level 164H, Uric Acid 7.2, Calcium Level 7.8L, Magnesium Level 1.8, Total Bilirubin 0.6, Aspartate Amino Transf (AST/SGOT) 26, Alanine Aminotransferase (ALT/SGPT) 28, Alkaline Phosphatase 87, Total Protein 7.2, Albumin 3.3L, Globulin 3.9, Albumin/Globulin Ratio 0.8L Height (Feet): 5 Height (Inches): 2.00 Weight (Pounds): 165 Objective General Appearance: WD/WN, alert Neck: supple Cardiovascular: normal rate Respiratory/Chest: chest wall non-tender, lungs clear, normal breath sounds Abdomen: normal bowel sounds, non tender, soft, no organomegaly Edema: no edema noted Arm (L), no edema noted Arm (R), no edema noted Leg (L), no edema noted Leg (R), no edema noted Pedal (L), no edema noted Pedal (R), no edema noted Generalized Basim Wiggins MD Aug 05, 2019 12:13
[2019-08-05] MEDS ORDERED: Azithromycin 250mg tab ORAL SCH (12:15)
[2019-08-05] MEDS ORDERED: Lidocaine 1% MPF 10mg/ml 5ml INJ SCH (14:00)
[2019-08-05] MEDS: cefTRIAXone 1 GM in D5W 55 ML IVPB SCH (14:39)
[2019-08-05 16:00] VITALS: BP 151/68
[2019-08-05] MEDS: Atorvastatin 20mg tab ORAL SCH (19:42)
[2019-08-05 20:00] VITALS: BP 140/65
--- NOTE | 2019-08-05 22:15 | Progress Note ---
DATE: 08/05/2019 CARDIOLOGY PROGRESS NOTE SUBJECTIVE: Cough and congestion persist. Low-grade fevers noted. Chest x-ray with a pneumonitis confirmed. The patient's diuretic was discontinued yesterday. A little bit of IV fluid was given due to prerenal status. OBJECTIVE: VITAL SIGNS: Blood pressure 96/62 earlier and presently 140/65, heart rate 88, respiratory rate 21, temperature max 99.6, and oxygen saturation on 2 liters 94%. LUNGS: Coarse breath sounds. Scattered rhonchi. HEART: Regular rhythm and rate. Normal S1 and S2 with a fourth heart sound. ABDOMEN: Soft. EXTREMITIES: No edema. LABORATORY DATA: Cultures negative. IMPRESSION: 1. Acute on chronic renal failure, resolved. 2. Acute bronchopneumonia, persisting. 3. Paroxysmal bronchospasm, improving. 4. Acute on chronic diastolic congestive heart failure, clinically compensated. 5. Degenerative aortic valve disease of no hemodynamic significance. PLAN: 1. . 2. Respiratory hygiene. 3. Bronchodilators. 4. Skin care. 5. Off antimicrobials. 6. Holding diuretics. Rafita Ham M.D. DR: MISHA JOB#: [id number] CC:
[2019-08-06] VITALS: BP 123/75
[2019-08-06] MEDS: Albuterol/Ipratropium 3ml neb HHN SCH ×4 (01:17→19:50)
[2019-08-06 04:00] VITALS: BP 122/68
[2019-08-06] MEDS: NovoLOG Insulin Flexpen SUBQ SCH ×4 (05:50→20:41)
[2019-08-06 08:00] VITALS: BP 118/61
[2019-08-06] MEDS: Memantine 10mg tab ORAL SCH ×2 (08:30→17:10)
[2019-08-06] MEDS: Sertraline 50mg tab ORAL SCH (08:30)
[2019-08-06] MEDS: Guaifenesin/DM 10ml syrup ORAL PRN (08:31)
[2019-08-06] MEDS: Cilostazol 100mg tab ORAL SCH ×2 (08:31→17:10)
[2019-08-06] MEDS: Heparin 5000 units/ml inj SUBQ SCH ×2 (08:36→20:39)
[2019-08-06] MEDS ORDERED: Tubing IV Secondary IV ONE (09:29)
[2019-08-06] MEDS ORDERED: NS 275ml ONE ×3 (09:29→17:20)
--- NOTE | 2019-08-06 10:51 | General Progress Note ---
Assessment/Plan Problem List: (1) Bronchitis ICD Codes: J40 - Bronchitis, not specified as acute or chronic SNOMED: 13546858 (2) Acute renal failure ICD Codes: N17.9 - Acute kidney failure, unspecified SNOMED: 56574121 (3) Pneumonia ICD Codes: J18.9 - Pneumonia, unspecified organism SNOMED: 877861509 (4) Diabetes ICD Codes: E11.9 - Type 2 diabetes mellitus without complications SNOMED: 55816890 (5) Hypertension ICD Codes: I10 - Essential (primary) hypertension SNOMED: 06869173 (6) Respiratory distress ICD Codes: R06.00 - Dyspnea, unspecified SNOMED: 459252972 Status: stable, progressing Assessment/Plan: resp rx cough rx adjusted iv abx ivf monitor cxr and labs pt/ot Subjective ROS Limited/Unobtainable: No Constitutional: Reports: malaise, weakness HEENT: Reports: no symptoms Cardiovascular: Reports: no symptoms Respiratory: Reports: cough Gastrointestinal/Abdominal: Reports: no symptoms Genitourinary: Reports: no symptoms Neurologic/Psychiatric: Reports: no symptoms Endocrine: Reports: no symptoms Hematologic/Lymphatic: Reports: no symptoms Allergies: Coded Allergies: No Known Allergies (Unverified , 05/20/16) All Systems: reviewed and negative except above Subjective no events. c/o cough and congestion. on iv abx. Objective Last 24 Hour Vital Signs Date Time Temp Pulse Resp B/P (MAP) Pulse Ox O2 Delivery O2 Flow Rate FiO2 08/06/19 08:31 88 118/61 08/06/19 08:00 98.8 96 24 118/61 (80) 100 08/06/19 07:06 96 Nasal Cannula 2.0 28 08/06/19 07:06 80 18 98 Nasal Cannula 2.0 28 78 18 96 08/06/19 04:00 98.5 96 19 122/68 (86) 98 08/06/19 01:17 91 18 99 Nasal Cannula 2.0 28 94 18 96 08/06/19 00:00 98.9 95 20 123/75 (91) 96 08/05/19 21:00 Nasal Cannula 2.0 08/05/19 20:05 94 Nasal Cannula 2.0 28 08/05/19 20:03 84 18 99 Nasal Cannula 2.0 28 87 18 94 11/23/19 20:00 98.0 88 21 140/65 (90) 96 08/05/19 17:33 99.6 08/05/19 16:00 99.6 96 18 151/68 (95) 94 08/05/19 12:33 86 18 98 Nasal Cannula 2.0 28 88 18 95 08/05/19 12:00 98.4 95 19 132/76 (94) 95 Intake and Output 08/05/19 08/06/19 18:59 06:59 Intake Total 1110 ml 1240 ml Output Total 200 ml Balance 1110 ml 1040 ml Intake Oral 240 ml IV Total 110 ml Other 1000 ml 1000 ml Output Urine Total 200 ml # Voids 2 # Bowel Movements 1 Height (Feet): 5 Height (Inches): 2.00 Weight (Pounds): 165 Objective General Appearance: WD/WN, alert Neck: supple Cardiovascular: normal rate Respiratory/Chest: chest wall non-tender, lungs clear, normal breath sounds Abdomen: normal bowel sounds, non tender, soft, no organomegaly Edema: no edema noted Arm (L), no edema noted Arm (R), no edema noted Leg (L), no edema noted Leg (R), no edema noted Pedal (L), no edema noted Pedal (R), no edema noted Generalized Basim Wiggins MD Aug 06, 2019 10:51
[2019-08-06 12:00] VITALS: BP 128/64
[2019-08-06 13:21] LABS: BASOPHILS % (AUTO) 1.2 % (0.0-2.0); EOSINOPHILS % (AUTO) 1.7 % (0.0-3.0); HEMATOCRIT 36.1 % (37.0-47.0); HEMOGLOBIN 11.8 G/DL (12.0-16.0); MEAN CORPUSCULAR VOLUME 87 FL (80-99); MONOCYTES % (AUTO) 12.1 % (1.0-10.0); NEUTROPHILS % (AUTO) 59.1 % (45.0-75.0); PLATELET COUNT 254 K/UL (150-450); RED BLOOD COUNT 4.18 M/UL (4.20-5.40); RED CELL DISTRIBUTION WIDTH 14.7 % (11.6-14.8); WHITE BLOOD COUNT 10.3 K/UL (4.8-10.8)
[2019-08-06 13:44] LABS: ALANINE AMINOTRANSFERASE 29 U/L (12-78); ALBUMIN/GLOBULIN RATIO 0.7 (1.0-2.7); ALKALINE PHOSPHATASE 79 U/L (46-116); ANION GAP 3 mmol/L (5-15); ASPARTATE AMINO TRANSFERASE 20 U/L (15-37); BILIRUBIN,TOTAL 0.6 MG/DL (0.2-1.0); BLOOD UREA NITROGEN 18 mg/dL (7-18); CARBON DIOXIDE 30 MMOL/L (21-32); CHLORIDE 99 MMOL/L (98-107); CREATININE 0.9 MG/DL (0.55-1.30); POTASSIUM 3.9 MMOL/L (3.5-5.1); SODIUM 132 MMOL/L (136-145)
[2019-08-06] MEDS: cefTRIAXone 1 GM in D5W 55 ML IVPB SCH (13:57)
[2019-08-06 16:00] VITALS: BP 121/65
[2019-08-06 20:00] VITALS: BP 135/61
[2019-08-06] MEDS: Atorvastatin 20mg tab ORAL SCH (20:32)
--- NOTE | 2019-08-06 23:30 | Progress Note ---
DATE: 08/06/2019 CARDIOLOGY PROGRESS NOTE SUBJECTIVE: The patient has cough and congestion slightly improved, but not much. She still is unable to mobilize without getting short of breath. OBJECTIVE: VITAL SIGNS: Blood pressure 118/61, pulse 96, respirations 24. Oxygen saturation 96% on 2 liters. LUNGS: Coarse breath sounds. Hacking cough. CARDIAC: Regular rhythm and rate. Normal S1, S2 with a fourth heart sound. ABDOMEN: Soft. EXTREMITIES: No edema. LABORATORY DATA: White count 10, hemoglobin 13.8. Sodium 132, potassium 3.9, bicarb 30, BUN 18, and creatinine 0.9. Albumin 3. Chest x-ray yesterday revealed diffuse interstitial markings. IMPRESSION: 1. Interstitial pneumonitis. 2. Paroxysmal bronchospasm. 3. Recurring cough. 4. Chronic diastolic congestive heart failure. 5. Hypertensive heart disease. PLAN: 1. Respiratory . 2. Antimicrobials. 3. Antitussives and bronchodilators. 4. DVT prophylaxis. 5. Cautious use of beta-jevon. Rafita Ham M.D. DR: BERONICA JOB#: [id number] CC:
[2019-08-07] VITALS (7 sets, daily range): BP systolic 129–147; BP diastolic 65–74
[2019-08-07] MEDS: Albuterol/Ipratropium 3ml neb HHN SCH ×4 (00:36→19:46)
[2019-08-07] MEDS: NovoLOG Insulin Flexpen SUBQ SCH ×4 (05:49→20:19)
--- NOTE | 2019-08-07 08:20 | General Progress Note ---
Assessment/Plan Problem List: (1) Bronchitis ICD Codes: J40 - Bronchitis, not specified as acute or chronic SNOMED: 76991611 (2) Acute renal failure ICD Codes: N17.9 - Acute kidney failure, unspecified SNOMED: 93370348 (3) Pneumonia ICD Codes: J18.9 - Pneumonia, unspecified organism SNOMED: 929620827 (4) Diabetes ICD Codes: E11.9 - Type 2 diabetes mellitus without complications SNOMED: 81853913 (5) Hypertension ICD Codes: I10 - Essential (primary) hypertension SNOMED: 80437577 (6) Respiratory distress ICD Codes: R06.00 - Dyspnea, unspecified SNOMED: 066095906 Status: stable, progressing Assessment/Plan: resp rx cough rx adjusted low dose oral steroid added iv abx monitor cxr and labs pt/ot dc planning tomorrow Subjective ROS Limited/Unobtainable: No Constitutional: Reports: malaise, weakness HEENT: Reports: no symptoms Cardiovascular: Reports: no symptoms Respiratory: Reports: cough, shortness of breath, wheezing Gastrointestinal/Abdominal: Reports: no symptoms Genitourinary: Reports: no symptoms Neurologic/Psychiatric: Reports: no symptoms Endocrine: Reports: no symptoms Hematologic/Lymphatic: Reports: no symptoms Allergies: Coded Allergies: No Known Allergies (Unverified , 05/20/16) All Systems: reviewed and negative except above Subjective no events. improving. decreased cough and congestion. Objective Last 24 Hour Vital Signs Date Time Temp Pulse Resp B/P (MAP) Pulse Ox O2 Delivery O2 Flow Rate FiO2 08/07/19 08:00 99.9 87 17 145/71 (95) 94 08/07/19 07:48 84 18 97 Nasal Cannula 2.0 28 82 18 96 08/07/19 07:48 96 Nasal Cannula 2.0 28 08/07/19 04:00 97.4 91 20 147/72 (97) 96 08/07/19 00:46 88 20 98 Nasal Cannula 2.0 28 08/07/19 00:36 90 18 93 Nasal Cannula 2.0 28 08/07/19 00:00 97.8 80 20 129/65 (86) 97 08/06/19 21:00 Nasal Cannula 2.0 08/06/19 20:00 97.6 81 20 135/61 (85) 98 08/06/19 20:00 84 20 97 Nasal Cannula 2.0 28 08/06/19 19:50 80 20 94 Nasal Cannula 2.0 28 08/06/19 19:50 94 Nasal Cannula 2.0 28 08/06/19 16:00 97.8 83 18 121/65 (83) 94 08/06/19 13:03 78 18 100 Nasal Cannula 2.0 28 70 16 97 08/06/19 12:00 98.7 82 18 128/64 (85) 99 08/06/19 11:11 98.8 08/06/19 08:31 88 118/61 08/06/19 08:30 Nasal Cannula 2.0 Intake and Output 08/06/19 08/07/19 19:00 07:00 Intake Total 1710 ml 450 ml Output Total 1000 ml Balance 1710 ml -550 ml Intake Oral 450 ml IV Total 110 ml Other 1600 ml Output Urine Total 1000 ml Laboratory Tests 08/06/19 12:10: White Blood Count 10.3, Red Blood Count 4.18L, Hemoglobin 11.8L, Hematocrit 36.1L, Mean Corpuscular Volume 87, Mean Corpuscular Hemoglobin 28.2, Mean Corpuscular Hemoglobin Concent 32.6, Red Cell Distribution Width 14.7, Platelet Count 254, Mean Platelet Volume 6.0L, Neutrophils (%) (Auto) 59.1, Lymphocytes ( %) (Auto) 26.0, Monocytes (%) (Auto) 12.1H, Eosinophils (%) (Auto) 1.7, Basophils (%) (Auto) 1.2, Sodium Level 132L, Potassium Level 3.9, Chloride Level 99, Carbon Dioxide Level 30, Anion Gap 3L, Blood Urea Nitrogen 18, Creatinine 0.9, Estimat Glomerular Filtration Rate , Glucose Level 157H, Calcium Level 8.0L, Total Bilirubin 0.6, Aspartate Amino Transf (AST/SGOT) 20, Alanine Aminotransferase (ALT/SGPT) 29, Alkaline Phosphatase 79, Total Protein 7.2, Albumin 3.0L, Globulin 4.2, Albumin/Globulin Ratio 0.7L Height (Feet): 5 Height (Inches): 2.00 Weight (Pounds): 165 Objective General Appearance: WD/WN, alert Neck: supple Cardiovascular: normal rate Respiratory/Chest: chest wall non-tender, right sided wheezes Abdomen: normal bowel sounds, non tender, soft, no organomegaly Edema: no edema noted Arm (L), no edema noted Arm (R), no edema noted Leg (L), no edema noted Leg (R), no edema noted Pedal (L), no edema noted Pedal (R), no edema noted Generalized Basim Wiggins MD Aug 07, 2019 08:20
[2019-08-07] MEDS: Memantine 10mg tab ORAL SCH ×2 (08:53→17:07)
[2019-08-07] MEDS: Cilostazol 100mg tab ORAL SCH ×2 (08:56→17:07)
[2019-08-07] MEDS: Sertraline 50mg tab ORAL SCH (08:57)
[2019-08-07] MEDS: Heparin 5000 units/ml inj SUBQ SCH ×2 (08:58→20:16)
--- NOTE | 2019-08-07 10:44 | Cardiology Report ---
APPROVED REPORT EXAM: Two-dimensional and M-mode echocardiogram with Doppler and color Doppler. INDICATION Congestive Heart Failure M-Mode DIMENSIONS IVSd1.0 (0.7-1.1cm)Left Atrium (MM)3.8 (1.6-4.0cm) LVDd5.0 (3.5-5.6cm)Aortic Root3.1 (2.0-3.7cm) PWd1.4 (0.7-1.1cm)Aortic Cusp Exc.1.4 (1.5-2.0cm) IVSs1.4 cm LVDs3.4 (2.5-4.0cm) PWs1.1 cm Technically difficult study due to poor acoustical windows. Normal left ventricular chamber size, systolic function and wall motion to extent visualized. Left ventricular ejection fraction estimated to be 55-60 %. No evidence of left ventricular hypertrophy. No pericardial effusion. All other cardiac chamber sizes are within normal limits. Aortic valve calcification with decreased cusp excursion c/w aortic stenosis. Thickened mitral valve leaflets with normal excursion. Mitral annulus and aortic root calcification. Normal pulmonic valve structure. Normal tricuspid valve structure. IVC at normal size with physiologic collapse. A color flow and spectral Doppler study was performed and revealed: No aortic insufficiency. Peak aortic valve gradient of 35 mm Hg and a mean of 16 mmHg. Aortic valve area 1.3 cm2 calculated by continuity equation. Trace mitral regurgitation. Mitral diastolic velocities suggest reduced left ventricular relaxation c/w mild LV diastolic dysfunction (Grade I ) Mild tricuspid regurgitation. Tricuspid systolic velocities suggests peak right ventricular systolic pressure of 10mmHg.
[2019-08-07] MEDS: cefTRIAXone 1 GM in D5W 55 ML IVPB SCH (14:23)
[2019-08-07] MEDS: Atorvastatin 20mg tab ORAL SCH (20:16)
[2019-08-08] VITALS: BP 125/75
[2019-08-08] MEDS: Albuterol/Ipratropium 3ml neb HHN SCH (01:25)
[2019-08-08 04:00] VITALS: BP 142/70
--- NOTE | 2019-08-08 04:00 | Progress Note ---
DATE: 08/07/2019 SUBJECTIVE: The patient is in no acute distress. Awake. Able to answer questions. Complaining of weakness. Presents with anxiety. Sleep and appetite are adequate. MENTAL STATUS EXAMINATION: The patient is alert and oriented times self, place, situation, and date. Mood is anxious. Affect is constricted. Congruent with mood. Thought process is linear and goal oriented. Thought content, no suicidal or homicidal ideation. ASSESSMENT: 1. Anxiety. 2. Depression. PLAN: 1. We will continue the current psychotropic medication and continue the Zoloft. 2. Provide the patient with reality orientation and supportive therapy. Charisse Pizarro M.D. DR: FREDDY JOB#: [id number] CC:
[2019-08-08] MEDS: NovoLOG Insulin Flexpen SUBQ SCH ×2 (06:08→11:30)
[2019-08-08 08:08] LABS: BASOPHILS % (AUTO) 0.8 % (0.0-2.0); EOSINOPHILS % (AUTO) 1.4 % (0.0-3.0); HEMATOCRIT 37.6 % (37.0-47.0); HEMOGLOBIN 12.7 G/DL (12.0-16.0); LYMPHOCYTES % (AUTO) 23.7 % (20.0-45.0); MEAN CORPUSCULAR VOLUME 85 FL (80-99); MONOCYTES % (AUTO) 9.4 % (1.0-10.0); NEUTROPHILS % (AUTO) 64.8 % (45.0-75.0); PLATELET COUNT 333 K/UL (150-450); RED BLOOD COUNT 4.42 M/UL (4.20-5.40); RED CELL DISTRIBUTION WIDTH 14.4 % (11.6-14.8); WHITE BLOOD COUNT 14.3 K/UL (4.8-10.8)
[2019-08-08 08:15] VITALS: BP 138/59
[2019-08-08 08:36] LABS: ALANINE AMINOTRANSFERASE 34 U/L (12-78); ALBUMIN 3.4 G/DL (3.4-5.0); ALBUMIN/GLOBULIN RATIO 0.7 (1.0-2.7); ALKALINE PHOSPHATASE 89 U/L (46-116); ANION GAP 12 mmol/L (5-15); ASPARTATE AMINO TRANSFERASE 24 U/L (15-37); BILIRUBIN,TOTAL 0.4 MG/DL (0.2-1.0); BLOOD UREA NITROGEN 24 mg/dL (7-18); CALCIUM 8.8 MG/DL (8.5-10.1); CARBON DIOXIDE 25 MMOL/L (21-32); CHLORIDE 102 MMOL/L (98-107); POTASSIUM 4.1 MMOL/L (3.5-5.1); SODIUM 138 MMOL/L (136-145)
[2019-08-08] MEDS: Sertraline 50mg tab ORAL SCH (08:44)
[2019-08-08] MEDS: Cilostazol 100mg tab ORAL SCH (08:44)
[2019-08-08] MEDS: Memantine 10mg tab ORAL SCH (08:45)
[2019-08-08] MEDS: Heparin 5000 units/ml inj SUBQ SCH (08:48)
[2019-08-08 11:52] VITALS: BP 138/68
--- NOTE | 2019-08-08 21:31 | Progress Note ---
DATE: 08/07/2019 CARDIOLOGY PROGRESS NOTE SUBJECTIVE: The patient is still short of breath with activity, but has improved. Her cough is still hacking but diminishing in frequency. OBJECTIVE: VITAL SIGNS: Blood pressure 145/71, pulse 87, respirations 17, and temperature 99.9. LUNGS: Coarse breath sounds, rhonchi. No wheezing CARDIAC: Regular rhythm and rate. Normal S1, S2 with a fourth heart sound. ABDOMEN: Soft. EXTREMITIES: No edema. LABORATORY DATA: No new labs. IMPRESSION: 1. Paroxysmal bronchospasm. 2. Acute bronchopneumonia. 3. Acute on chronic diastolic congestive heart failure. 4. Chronic kidney disease. 5. Hypertensive heart disease. PLAN: Cardiovascular parameters have stabilized. Pulmonary parameters are improving slowly. The patient does not need to be on any chronic diuretic therapy. Once her acute pulmonary infection symptoms resolve further tightening of her cardiovascular parameters can follow. Steroid taper ongoing per primary care physician. Rafita Ham M.D. DR: BERONICA JOB#: [id number] CC:
--- NOTE | 2019-08-08 21:31 | Progress Note ---
DATE: 08/08/2019 CARDIOLOGY PROGRESS NOTE SUBJECTIVE: The patient's cough has decreased. She is not short of breath and is able to ambulate without discomfort. OBJECTIVE: VITAL SIGNS: Blood pressure 138/68, pulse 81, respirations 16. No fevers. LUNGS: With coarse breath sounds. No wheezing. HEART: Regular rhythm and rate. Normal S1, S2. There is a fourth heart sound. ABDOMEN: Soft. EXTREMITIES: No edema. LABORATORY DATA: White count 14, hemoglobin 12.7. Potassium 4.1, BUN 24, creatinine 1. Albumin 3.4. Glucose 167. IMPRESSION: 1. Leukocytosis, on steroids. 2. Bronchospasm, recovered. 3. Bronchopneumonia, improved. 4. Hypertensive heart disease with stable blood pressure range and expected to improve further once off steroids. 5. Acute on chronic diastolic congestive heart failure, clinically compensated. 6. Mild protein-calorie malnutrition, resolved. PLAN: 1. Outpatient followup. 2. Discharge medication regimen reviewed with the patient and primary care physician. Rafita Ham M.D. DR: FARA JOB#: [id number] CC:
--- NOTE | 2019-08-09 00:15 | Discharge Summary ---
DATE OF ADMISSION: 08/04/2019 DATE OF DISCHARGE: 08/08/2019 ADMISSION DIAGNOSES: 1. Pneumonia. 2. Chronic obstructive pulmonary disease exacerbation. 3. Hypertension. 4. Possible congestive heart failure exacerbation. DISCHARGE DIAGNOSES: 1. Pneumonia. 2. Chronic obstructive pulmonary disease exacerbation. 3. Hypertension. 4. Possible congestive heart failure exacerbation. HOSPITAL COURSE: The patient is a pleasant female, who is admitted with complaints of shortness of breath, cough, and congestion. She was initially thought to have possible congestive heart failure exacerbation. She was treated for congestive heart failure as well as chronic obstructive pulmonary disease exacerbation/asthma exacerbation as well as pneumonia. She was influenza negative. She improved clinically with intravenous steroids, breathing treatments, and antibiotics. She was gently diuresed and developed some mild acute hydration. On discharge, she was stable. She will be discharged home with an oral prednisone taper as well as cough medications and prednisone and antibiotics. DISCHARGE MEDICATIONS: Please see discharge medication list for discharge medications. DIET: Cardiac diet. ACTIVITIES: Ad-italo. FOLLOWUP: The patient will follow up in 1 to 2 weeks in the office. Basim Wiggins M.D. DR: CARMELA JOB#: [id number] CC:
--- NOTE | 2019-08-09 04:15 | Progress Note ---
DATE: 08/08/2019 SUBJECTIVE: The patient is in bed, no behavior issues noted. She is calm, cooperative, some anxiety. Compliant with medications. MENTAL STATUS EXAMINATION: The patient is alert, oriented times self, place, and situation. Mood is dysphoric and anxious. Affect is constricted. Congruent with mood. Thought process is linear and goal oriented. Thought content, no suicidal or homicidal ideation. ASSESSMENT: Stable. PLAN: 1. We will continue current medications. 2. Provide the patient with reality orientation and supportive therapy. Charisse Pizarro M.D. DR: Sarina JOB#: [id number] CC:
== END 2019-08-08 12:27 | disposition home health service (06) | DRG 139 ==
LOC: EDBD 21:27 → EMR 22:31 → 2E 08-03 00:08 → EDBEDREQ 08-03 00:29 → 4E 08-04 14:40
DX: J18.9 Pneumonia, unspecified organism (principal); J44.1 Chronic obstructive pulmonary disease with (acute) exacerbation; J96.00 Acute respiratory failure, unspecified whether with hypoxia or hypercapnia; I50.31 Acute diastolic (congestive) heart failure; I11.0 Hypertensive heart disease with heart failure; Z87.891 Personal history of nicotine dependence; E78.5 Hyperlipidemia, unspecified; M19.90 Unspecified osteoarthritis, unspecified site; R00.0 Tachycardia, unspecified; E11.65 Type 2 diabetes mellitus with hyperglycemia; J98.01 Acute bronchospasm; I16.0 Hypertensive urgency; I35.0 Nonrheumatic aortic (valve) stenosis; F32.9 Major depressive disorder, single episode, unspecified; F41.9 Anxiety disorder, unspecified; N17.9 Acute kidney failure, unspecified; I36.1 Nonrheumatic tricuspid (valve) insufficiency
CPT/HCPCS: 36415; 36600; 71045; 80053; 81003; 82803; 82962; 83735; 83880; 84484; 84550; 85025; 86710; 87070; 87205; 93005; 93306; 94640; 94664; 96374; 96375; 99291; J1815; J7620

== ENCOUNTER 2020-06-28 09:08 | Inpatient (IN) | payer MEDICARE, MEDICAID ==
[~2020-06-28] VITALS: Ht 157.5 cm; Wt 73.2 kg
[~2020-06-28 09:08] MED LIST changes: +ATORVASTATIN CA20 MG ORAL; +CILOSTAZOL100 MG PO
[2020-06-28] MEDS ORDERED: Hydromorphone 0.5mg/0.5ml inj IVP ONE (09:15)
[2020-06-28] MEDS ORDERED: Omnipaque-300 100ml vial INJ PRN (09:15)
--- NOTE | 2020-06-28 09:15 | Emergency Room Report ---
History of Present Illness General Chief Complaint: Abdominal Pain Source: Patient Present Illness HPI 80-year-old female history of hypertension, diabetes had a endoscopy last week, no known results, presents with 3 days abdominal pain it feels like fire in her abdomen, radiates to her mouth, states she also has pain with urination, burning with urination, no aggravating relieving factors severity is moderate, constant no chest pain or shortness of breath, she states she endorses some fevers patient presents for evaluation and treatment Allergies: Coded Allergies: No Known Allergies (Unverified , 05/20/16) COVID-19 Screening Contact w/high risk pt: No Experienced COVID-19 symptoms?: Yes COVID-19 Testing performed REAL ESTATE DEVELOPER: No Patient History Past Medical History: see triage record Last Menstrual Period: NA Reviewed Nursing Documentation: PMH: Agreed; PSxH: Agreed Nursing Documentation-PMH Past Medical History: No History, Except For Hx Cardiac Problems: Yes Hx Hypertension: Yes Hx COPD: Yes Hx Diabetes: Yes Hx Cancer: No Hx Gastrointestinal Problems: Yes - GERD Hx Neurological Problems: No Review of Systems All Other Systems: negative except mentioned in HPI Physical Exam Vital Signs Date Time Temp Pulse Resp B/P (MAP) Pulse Ox O2 Delivery O2 Flow Rate FiO2 06/28/20 09:06 100.8 92 18 167/68 (101) 97 Room Air Sp02 EP Interpretation: reviewed, normal General Appearance: well appearing, no apparent distress, alert Head: normocephalic, atraumatic Eyes: bilateral eye PERRL, bilateral eye EOMI ENT: uvula midline, moist mucus membranes Neck: supple, thyroid normal, supple/symm/no masses Respiratory: lungs clear, no respiratory distress, no retraction, no accessory muscle use Cardiovascular #1: normal peripheral pulses, regular rate, rhythm, no edema, no gallop, no murmur Gastrointestinal: soft, no guarding, no rebound, tenderness - Mildly suprapubically Musculoskeletal: normal inspection Neurologic: alert, oriented x3 Psychiatric: mood/affect normal Skin: no rash, warm/dry Medical Decision Making Diagnostic Impression: Primary Impression: Pyelonephritis ER Course 80-year-old female presents with dysuria, flank pain, differential diagnosis includes urinary tract infection, pyelonephritis, appendicitis Patient's CT scan is consistent with nephritis, patient given ceftriaxone Patient admitted to Dr. Leslie Laboratory Tests Test 06/28/20 09:16 06/28/20 11:08 White Blood Count 15.4 K/UL (4.8-10.8) H Red Blood Count 4.57 M/UL (4.20-5.40) Hemoglobin 13.2 G/DL (12.0-16.0) Hematocrit 38.5 % (37.0-47.0) Mean Corpuscular Volume 84 FL (80-99) Mean Corpuscular Hemoglobin 28.9 PG (27.0-31.0) Mean Corpuscular Hemoglobin Concent 34.3 G/DL (32.0-36.0) Red Cell Distribution Width 13.7 % (11.6-14.8) Platelet Count 257 K/UL (150-450) Mean Platelet Volume 6.2 FL (6.5-10.1) L Neutrophils (%) (Auto) 80.5 % (45.0-75.0) H Lymphocytes (%) (Auto) 7.5 % (20.0-45.0) L Monocytes (%) (Auto) 11.1 % (1.0-10.0) H Eosinophils (%) (Auto) 0.0 % (0.0-3.0) Basophils (%) (Auto) 0.9 % (0.0-2.0) Prothrombin Time 10.8 SEC (9.30-11.50) Prothrombin Time INR 1.0 (0.9-1.1) Activated Partial Thromboplast Time 31 SEC (23-33) Sodium Level 133 MMOL/L (136-145) L Potassium Level 4.2 MMOL/L (3.5-5.1) Chloride Level 97 MMOL/L (98-107) L Carbon Dioxide Level 26 MMOL/L (21-32) Anion Gap 10 mmol/L (5-15) Blood Urea Nitrogen 11 mg/dL (7-18) Creatinine 1.2 MG/DL (0.55-1.30) Estimated Glomerular Filtration Rate 43.0 mL/min (>60) Glucose Level 166 MG/DL (74-106) H Lactic Acid Level 0.90 mmol/L (0.4-2.0) Calcium Level 8.8 MG/DL (8.5-10.1) Total Bilirubin 0.7 MG/DL (0.2-1.0) Aspartate Amino Transferase (AST) 24 U/L (15-37) Alanine Aminotransferase (ALT) 25 U/L (12-78) Alkaline Phosphatase 85 U/L (46-116) Troponin I 0.000 ng/mL (0.000-0.056) Total Protein 7.5 G/DL (6.4-8.2) Albumin 3.4 G/DL (3.4-5.0) Globulin 4.1 g/dL Albumin/Globulin Ratio 0.8 (1.0-2.7) L Lipase 79 U/L (73-393) Urine Color Pale yellow Urine Appearance Clear Urine pH 7 (4.5-8.0) Urine Specific [place] 1.005 (1.005-1.035) Urine Protein 1+ (NEGATIVE) H Urine Glucose (UA) Negative (NEGATIVE) Urine Ketones Negative (NEGATIVE) Urine Blood 2+ (NEGATIVE) H Urine Nitrite Negative (NEGATIVE) Urine Bilirubin Negative (NEGATIVE) Urine Urobilinogen Normal MG/DL (0.0-1.0) Urine Leukocyte Esterase 2+ (NEGATIVE) H Urine RBC 0-2 /HPF (0 - 2) Urine WBC 5-10 /HPF (0 - 2) H Urine Squamous Epithelial Cells Few /LPF (NONE/OCC) Urine Bacteria Occasional /HPF (NONE) Microbiology Date/Time Source Procedure Growth Status 06/28/20 09:48 Nasopharynx SARS-CoV-2 RdRp Gene Assay - Final Complete EKG Diagnostic Results Troponin ordered: Yes When was troponin ordered?: Jun 28, 2020 - 911 EKG Time: 09:15 EP Interpretation: NSR, rate 86, QTc 430, no acute escalations, left axis deviation Rhythm Strip Diag. Results Rhythm Strip Time: 11:09 EP Interpretation: yes Rate: 83 Rhythm: NSR, no PVC's, no ectopy Last Vital Signs Date Time Temp Pulse Resp B/P (MAP) Pulse Ox O2 Delivery O2 Flow Rate FiO2 06/28/20 09:06 100.8 92 18 167/68 (101) 97 Room Air Disposition: ADMITTED INPATIENT Condition: Stable Gabino Jurado MD Jun 28, 2020 09:15
[2020-06-28 09:30] VITALS: BP 156/70
--- NOTE | 2020-06-28 09:30 | NUR ---
ED Nurse Note: Pt walked into ED for c/o lower abdominal pain 8/ for 5 days. Pt has GIL pain as well. Pt temp is 102F. Pt is alert and orientedx4, ambulatory. Pt has been seen by ERMD. IV established. Pt denies NVD.
[2020-06-28 09:40] LABS: BASOPHILS % (AUTO) 0.9 % (0.0-2.0); HEMATOCRIT 38.5 % (37.0-47.0); HEMOGLOBIN 13.2 G/DL (12.0-16.0); LYMPHOCYTES % (AUTO) 7.5 % (20.0-45.0); MEAN CORPUSCULAR VOLUME 84 FL (80-99); MONOCYTES % (AUTO) 11.1 % (1.0-10.0); NEUTROPHILS % (AUTO) 80.5 % (45.0-75.0); PLATELET COUNT 257 K/UL (150-450); RED BLOOD COUNT 4.57 M/UL (4.20-5.40); RED CELL DISTRIBUTION WIDTH 13.7 % (11.6-14.8); WHITE BLOOD COUNT 15.4 K/UL (4.8-10.8)
[2020-06-28 09:41] LABS: CALCIUM 8.8 MG/DL (8.5-10.1); CREATININE 1.2 MG/DL (0.55-1.30); POTASSIUM 4.2 MMOL/L (3.5-5.1)
[2020-06-28 09:45] LABS: ALBUMIN 3.4 G/DL (3.4-5.0); ALBUMIN/GLOBULIN RATIO 0.8 (1.0-2.7); BILIRUBIN,TOTAL 0.7 MG/DL (0.2-1.0)
[2020-06-28 11:20] VITALS: BP 151/76
[2020-06-28 11:21] LABS: APPEARANCE,URINE CLEAR; BILIRUBIN, URINE NEGATIVE (NEGATIVE); COLOR,URINE PALE YELLOW; GLUCOSE, URINE (UA) NEGATIVE (NEGATIVE); KETONES,URINE NEGATIVE (NEGATIVE); LEUKOCYTE ESTERASE ,URINE 2+ (NEGATIVE); NITRITE,URINE NEGATIVE (NEGATIVE); PH,URINE 7 (4.5-8.0); PROTEIN,URINE 1+ (NEGATIVE); UROBILINOGEN,URINE NORMAL MG/DL (0.0-1.0)
[2020-06-28] MEDS ORDERED: cefTRIAXone 1 GM in NS 55 ML IVPB ONE (12:00)
--- NOTE | 2020-06-28 12:10 | NUR ---
ED Nurse Note: Rocephine 1g running. iv site clean and intact. pt denied any pain or discomfort at this time.
--- NOTE | 2020-06-28 12:16 | Diagnostic Imaging Report ---
Clinical Indication: Abdominal pain Technique: No oral contrast utilized, per emergency room physician request IV administration nonionic contrast. Venous phase spiral acquisition obtained through the abdomen and pelvis. Multiplanar reconstructions were generated. Total dose length product 460 mGycm. CTDIvol(s) 9 mGy. Dose reduction achieved using automated exposure control Comparison: none Findings: There is some image degradation due to respiratory motion artifact Lack of enteric contrast limits assessment of the GI tract. There are colonic diverticula. There is no evidence of acute diverticulitis. The appendix is normal. No small bowel distention. No free or loculated intraperitoneal gas or fluid is evident. The distal esophagus, stomach, duodenum are unremarkable. The liver, gallbladder, bile ducts, pancreas, spleen, adrenals are unremarkable. There is a subtle area of low-attenuation in the upper pole of the right kidney which measures 2 cm in diameter. This is fairly well-circumscribed. This demonstrates nonspecific soft tissue attenuation. The left kidney demonstrates a lower pole cyst. No renal or ureteral calculi, hydronephrosis, or hydroureter. No retroperitoneal or mesenteric mass or adenopathy. No pelvic mass or adenopathy. The uterus is absent. The included lung bases are clear. The bones demonstrate degenerative spondylosis changes. There is mild wedge deformity of the L1 vertebral body. Impression: Limited assessment of the GI tract, due to lack of enteric contrast administration Low-attenuation area in the upper pole right kidney measuring 2 cm in diameter. This raises concern for renal neoplasm. However, this could also represent an area of focal nephritis. Correlate with clinical and laboratory findings L1 vertebral body wedge deformity, could represent an age-indeterminate compression fracture. Consider MRI to better characterize if clinically relevant Colonic diverticulosis. No evidence of diverticulitis Incidental findings as noted, including left renal cyst, degenerative spondylosis, evidence of prior hysterectomy The CT scanner at [facility] is accredited by the [employer] and the scans are performed using protocols designed to limit radiation exposure to as low as reasonably achievable to attain images of sufficient resolution adequate for diagnostic evaluation.
[2020-06-28] MEDS ORDERED: Ketorolac 30mg Inj IV ONE (12:45)
[2020-06-28] MEDS ORDERED: Lidocaine 2% Visc 15ml soln ORAL ONE (12:45)
[2020-06-28] MEDS ORDERED: Acetaminophen 500mg (ES) tab ORAL ONE (12:45)
[2020-06-28 13:49] VITALS: BP 152/73
--- NOTE | 2020-06-28 14:18 | NUR ---
ED Nurse Note: REPORT GIVEN TO CECIL COLIN
--- NOTE | 2020-06-28 14:42 | NUR ---
ED Nurse Note: ATTEMPTED TO CALL JAIRO 3 TIMES (PER PT. SHE KNOWS HER MEDLIST) BUT NO ANSWER. INFORMED CRISTI BEING UNABLE TO TO DO MEDLIST Addendum: 06/28/20 at 1500 by CDOMINGO
[2020-06-28] MEDS ORDERED: ASPIRIN81 MG ORAL (15:00)
--- NOTE | 2020-06-28 15:00 | NUR ---
ED Nurse Note: Pt transferred to MS floor with all belongings. No acute distress.
--- NOTE | 2020-06-28 15:43 | NUR ---
NURSE NOTES: Report received from Skyla JACOB. Patient admitted from the ER via wheelchair, AxOx4, ambulatory, still with some mild discomfort over lower abdomen, no signs of distress, afebrile, Covid negative at ER. PIV on left AC patent and intact. Pt is continent and ambulatory. All belongings checked and accounted for. Attempted to reach daughter Margo for medication history but no answer, left mesage. Spoke with son Danis however he is not aware of patient's medications. Left message for Dr. Rubina Leslie for admission orders. Awaiting call back . Skin assessed and intact. Bed low and locked, siderails up x2, call light placed within reach and instructed to call nurse for assistance. Will continue to monitor.
--- NOTE | 2020-06-28 15:46 | Diagnostic Imaging Report ---
Indication: Chest pain Technique: One view of the chest Comparison: 08/05/2019 Findings: The lungs and pleural spaces are clear. The heart size is normal. The aorta is calcified. No significant change Impression: No acute process
[2020-06-28] MEDS ORDERED: Promethazine/Codeine 5ml UD ORAL PRN (16:45)
[2020-06-28] MEDS: Piperacillin/Tazobactam 2.25 GM in NS 55 ML IV SCH (18:00)
[2020-06-28] MEDS: Memantine 10mg tab ORAL SCH (18:00)
--- NOTE | 2020-06-28 19:20 | NUR ---
NURSE NOTES: RECEIVED PATIENT FROM CECIL COLIN. PATIENT IS AWAKE, AAOX4, ON ROOM AIR, NO ACUTE DISTRESS NOTED. DENIES PAIN AT THE MOMENT, DENIES SOB, DENIES CHEST PAIN. PIV ON LEFT AC 20G INTACT AND PATENT. PATIENT IS AMBULATORY, STEADY GAIT. BED IS LOCKED AND LOW, BED ALARMS ACTIVE, SIDE RAILS UPX2 AND CALL LIGHT IS WITHIN REACH. WILL CONTINUE TO MONITOR.
--- NOTE | 2020-06-28 19:22 | NUR ---
NURSE HAND-OFF: Important Events on Shift: Patient admitted from ER, all admission orders done Patient Status: Stable Diet: CCHO med Pending Orders: Labs in AM Pending Results/Labs: None Pending MD notification: None Latest Vital Signs: Temperature 99.5 , Pulse 90 , B/P 152 /73 , Respiratory Rate 17 , O2 SAT 100 , Room Air, O2 Flow Rate . Vital Sign Comment: Latest Connell Fall Score: 20 Fall Risk: Low Risk Safety Measures: Call light Within Reach, Bed Alarm Zone 1, Side Rails Side Rails x2, Bed position Low and Locked. Fall Precautions: Patient Fall Education Report given to Dee RN.
[2020-06-28 21:00] VITALS: BP 112/63
[2020-06-28] MEDS ORDERED: Zolpidem 5mg tab ORAL PRN (21:00)
[2020-06-28] MEDS: Docusate 100mg cap ORAL SCH (21:12)
[2020-06-28] MEDS: Atorvastatin 20mg tab ORAL SCH (21:13)
[2020-06-29] VITALS: BP 146/90
[2020-06-29] MEDS: Piperacillin/Tazobactam 2.25 GM in NS 55 ML IV SCH ×2 (02:20→10:27)
[2020-06-29 04:00] VITALS: BP 130/59
--- NOTE | 2020-06-29 07:29 | NUR ---
NURSE HAND-OFF: Important Events on Shift: NO ACUTE EVENTS, PATIENT IS STILL RECEIVED ANTIBIOTICS, NEW IV INSERTED ON LEFT WRIST Patient Status: STABLE Diet: CCHO (MED) Pending Orders: N/A Pending Results/Labs: CBC, CMP, HA1C Pending MD notification: N/A Latest Vital Signs: Temperature 97.9 , Pulse 78 , B/P 130 /59 , Respiratory Rate 17 , O2 SAT 97 , Room Air, O2 Flow Rate . Vital Sign Comment: STABLE Latest Connell Fall Score: 20 Fall Risk: Low Risk Safety Measures: Call light Within Reach, Bed Alarm Zone 1, Side Rails Side Rails x2, Bed position Low and Locked. Fall Precautions: Yellow Socks Yellow Gown Door Sign Patient Fall Education Report given to CECIL TIAN.
--- NOTE | 2020-06-29 07:50 | NUR ---
NURSE NOTES: Patient is awake and alert and oriented,respirations un labored.Saline lock to the left wrist intact,Patient ate breakfast,Call light within reach.
[2020-06-29 07:52] LABS: BASOPHILS % (AUTO) 0.5 % (0.0-2.0); EOSINOPHILS % (AUTO) 0.1 % (0.0-3.0); HEMATOCRIT 35.8 % (37.0-47.0); LYMPHOCYTES % (AUTO) 11.5 % (20.0-45.0); MEAN CORPUSCULAR VOLUME 85 FL (80-99); MONOCYTES % (AUTO) 10.1 % (1.0-10.0); NEUTROPHILS % (AUTO) 77.8 % (45.0-75.0); PLATELET COUNT 236 K/UL (150-450); RED BLOOD COUNT 4.23 M/UL (4.20-5.40); RED CELL DISTRIBUTION WIDTH 13.6 % (11.6-14.8)
[2020-06-29 08:00] VITALS: BP 121/58
[2020-06-29 08:46] LABS: ALANINE AMINOTRANSFERASE 28 U/L (12-78); ALBUMIN 2.6 G/DL (3.4-5.0); ALBUMIN/GLOBULIN RATIO 0.6 (1.0-2.7); ALKALINE PHOSPHATASE 71 U/L (46-116); ANION GAP 8 mmol/L (5-15); ASPARTATE AMINO TRANSFERASE 22 U/L (15-37); BILIRUBIN,TOTAL 0.3 MG/DL (0.2-1.0); BLOOD UREA NITROGEN 18 mg/dL (7-18); CALCIUM 7.9 MG/DL (8.5-10.1); CARBON DIOXIDE 26 MMOL/L (21-32); CHLORIDE 101 MMOL/L (98-107); CHOLESTEROL 117 MG/DL (< 200); CREATININE 1.4 MG/DL (0.55-1.30); HDL CHOLESTEROL 38 MG/DL (40-60); POTASSIUM 3.9 MMOL/L (3.5-5.1); SODIUM 135 MMOL/L (136-145); TRIGLYCERIDES 104 MG/DL (30-150)
[2020-06-29] MEDS: Aspirin Baby 81mg ORAL SCH (09:20)
[2020-06-29] MEDS: Docusate 100mg cap ORAL SCH ×2 (09:20→20:22)
[2020-06-29] MEDS: Sertraline 50mg tab ORAL SCH (09:21)
[2020-06-29] MEDS: Enoxaparin 40mg Inj SUBQ SCH (09:25)
[2020-06-29] MEDS: Memantine 10mg tab ORAL SCH ×2 (09:26→18:10)
--- NOTE | 2020-06-29 10:40 | History & Physical ---
History and Physical History & Physicial HP dictated # [id number] Dorian Leslie MD Jun 29, 2020 10:40
[2020-06-29 12:00] VITALS: BP 161/73
--- NOTE | 2020-06-29 12:45 | History and Physical Report ---
DATE OF ADMISSION: 06/28/2020 CHIEF COMPLAINT: Abdominal pain and dysuria. HISTORY OF PRESENT ILLNESS: This is an 80-year-old female, who came to the emergency room with a five-day history of abdominal pain, which is in the lower abdomen. The patient had also feeling that she had acid reflux coming to her mouth and she had burning on urination. She was seen in the emergency room, was diagnosed with pyelonephritis, was admitted. PAST MEDICAL HISTORY: Includes history of diabetes and hypertension and hyperlipidemia and gastroesophageal reflux disease. Apparently, she had an endoscopy last week. She does not know the results. MEDICATIONS: Reviewed in the EMR. SOCIAL HISTORY: The patient lives with two family members. No history of smoking or alcohol abuse. ALLERGIES: No known drug allergies. REVIEW OF SYSTEMS: Noncontributory except above. PHYSICAL EXAMINATION: GENERAL: The patient is an elderly female, in no acute distress. She feels somewhat better now. VITAL SIGNS: Blood pressure is 144/72, pulse is 87, temperature 97.9, respiratory rate 17. HEENT: [place] conjunctivae. Anicteric sclerae. NECK: Supple. LUNGS: Clear to auscultation. HEART: S1, S2 without murmurs or rubs. ABDOMEN: Soft, nontender. EXTREMITIES: No cyanosis or edema. LABORATORY FINDINGS: CBC shows a WBC of 11,000, which is down from 15,400 from yesterday, hematocrit is 35.8, hemoglobin is 12, platelets 236,000. Chemistry panel shows a serum sodium 135, potassium 3.9, chloride 101, CO2 26, BUN is 18, creatinine 1.4, glucose is 162. Hemoglobin A1c is 6.8, calcium is 7.9. Albumin is 2.6. . UA shows 0 to 2 rbc's, 5 to 10 wbc's per high-power field, 1+ protein. ASSESSMENT: This is an 80-year-old female, who was admitted with urinary tract infection, possibility of pyelonephritis. She has diabetes and hypertension, hyperlipidemia, and gastroesophageal reflux disease. PLAN: The patient will be on IV antibiotics, IV fluids, p.r.n. pain medications. She will be seen by ID recruiting operations consultant. Labs will be followed and further adjustment will be made in the patient's regimen. Dorian Leslie M.D. DR: SAMI JOB#: [id number] CC: TON
[2020-06-29 16:00] VITALS: BP 138/70
--- NOTE | 2020-06-29 17:15 | Consultation ---
DATE OF CONSULTATION: 06/29/2020 UROLOGY CONSULTATION CONSULTING PHYSICIAN: Woo Rizo MD. ATTENDING/REFERRING PHYSICIAN: Dorian Leslie MD. CHIEF COMPLAINT/HISTORY OF PRESENT ILLNESS: I was asked by Dr. Leslie to evaluate this 80-year-old female regarding history of a 2 cm mass described on CT scan in the right kidney. Briefly, the patient presented to the hospital with a 5-day history of abdominal pain. She also had sensation of acid reflux and some dysuria. Workup revealed evidence of pyelonephritis and the patient was admitted for further treatment of the same. A CT scan revealed a finding described above and as such, I was asked to evaluate the patient. PAST MEDICAL HISTORY: 1. Diabetes. 2. Hypertension. 3. Hyperlipidemia. 4. GERD. 5. Urinary tract infection. PAST SURGICAL HISTORY: EGD. MEDICATIONS: Please see the chart for current medications and administration details. Briefly, the patient is receiving Zosyn for antibiotic coverage. ALLERGIES: No known drug allergies. SOCIAL HISTORY: Unremarkable for tobacco, alcohol, or drug use. FAMILY HISTORY: Noncontributory. REVIEW OF SYSTEMS: A 14-system review of systems unremarkable outside what was described above. PHYSICAL EXAMINATION: GENERAL: The patient is an older female, awake, alert and oriented x4, pleasant, in no obvious distress. HEENT: NC/AT. EOMI. Full range of motion. Oropharynx clear. NECK: Supple. CHEST: Within normal limits. ABDOMEN: Soft, nontender, and nondistended. EXTREMITIES: Warm and well perfused. No cyanosis, clubbing, or edema. NEUROLOGIC: Grossly nonfocal. LABORATORY DATA: White blood cell count 11.0, down from 15.4 on admission; hematocrit 35.8; platelets 236,000. PT, PTT, and INR within normal limits. Sodium 135, potassium 3.9, chloride 101, bicarbonate 26, BUN 18, creatinine 1.4. Glucose 162. Hemoglobin A1c 6.8. Calcium 7.9. LFTs within normal limits. Troponin negative. Urinalysis, specific gravity 1.005, pH 7.0. Dip test is notable for 1+ protein, 2+ occult blood, 2+ leukocyte esterase. Microanalysis with 5 to 10 white blood cells per high-power field and occasional bacteria only. COVID test is negative. Urine culture pending. DIAGNOSTIC IMAGING: CT scan of the abdomen and pelvis reveals a subtle area of low attenuation in the upper pole of the right kidney measuring 2 cm in size, which was pretty well circumscribed. This demonstrates nonspecific soft tissue attenuation. The left kidney has a lower pole cyst. There is no evidence of renal calculus, hydronephrosis, or hydroureter. ASSESSMENT AND PLAN: In summary, the patient is an 80-year-old female presenting with abdominal pain, some acid reflux, and dysuria. She was admitted for management of the same. She was started on antibiotics and her white blood cell count has decreased. Physical exam is unremarkable. Laboratory data is notable for an elevated but decreasing white blood cell count. The urine culture still pending. Diagnostic imaging with CT scan reveals the findings described above. The patient's renal finding appears to be small and is not particularly concerning by description. I would merely recommend observation and surveillance with a repeat CT scan in 6 to 12 months' time to ensure that the mass is not growing, etc. If the mass does not demonstrate any growth within the next year, I would consider a benign finding without the need for further imaging. Thank you for allowing me to participate in the care of this nice lady. Please do not hesitate to contact me for any questions that you may further have regarding her care. I will see her with you as needed. Woo Rizo M.D. DR: CHIKA JOB#: [id number] CC:
[2020-06-29] MEDS: Zoysn 3.37gm in NS 100ML IVPB SCH (18:10)
--- NOTE | 2020-06-29 18:16 | NUR ---
NURSE NOTES: Patient sitting up ,mylanta was given for complaint of heartburn will follow up,call light within reach.
--- NOTE | 2020-06-29 19:00 | NUR ---
NURSE NOTES: Patient resting, at this time,no further complaints at this time.call light within reach.
--- NOTE | 2020-06-29 19:40 | NUR ---
NURSE HAND-OFF: Hung RN Important Events on Shift:[complaint of heart burn patient started on Protonix today.Also received Mylanta as ordered PRN] Patient Status: [] Diet: [ccho medium] Pending Orders: [] Pending Results/Labs:[] Pending MD notification:[] Latest Vital Signs: Temperature 99.3 , Pulse 83 , B/P 138 /70 , Respiratory Rate 19 , O2 SAT 95 , Room Air, O2 Flow Rate . Vital Sign Comment: [] Latest Connell Fall Score: 20 Fall Risk: Low Risk Safety Measures: Call light Within Reach, Bed Alarm Zone 1, Side Rails Side Rails x2, Bed position Low and Locked. Fall Precautions: Yellow Socks y Yellow Gown Door Sign Patient Fall Education Report given to [].
--- NOTE | 2020-06-29 19:46 | NUR ---
NURSE NOTES: Received report from Roxann JACOB.The patient is alert and oriented x4 Wolof speaker, is calm and cooperative with her care and does not appear to be in any active distress at this time. She is on RA with Resp even and unlabored. She has a bedside commode and a Left wrist 22g IV line that is patent and asymptomatic.The skin is intact and is warm and soft with active bowel sounds noted in all 4 quadrant.The bed in low and locked level, call light within easy reach and siderails up x2. will continue to monitor as indicated.
[2020-06-29 20:00] VITALS: BP 166/96
[2020-06-29] MEDS: Atorvastatin 20mg tab ORAL SCH (20:22)
[2020-06-30] VITALS (7 sets, daily range): BP systolic 129–160; BP diastolic 69–82
[2020-06-30] MEDS: Zoysn 3.37gm in NS 100ML IVPB SCH ×3 (02:11→17:07)
--- NOTE | 2020-06-30 03:41 | NUR ---
NURSE NOTES: The patient was calm and cooperative with her care all night long and does not seem to be in any distress.The was no sign nor evidence of pain noted at this time.She received her Antibiotics as indicated well tolerated.She was also able to use her bedside commode numerous time to urinate. will continue to monitor
[2020-06-30 06:30] LABS: BASOPHILS % (AUTO) 0.9 % (0.0-2.0); EOSINOPHILS % (AUTO) 0.2 % (0.0-3.0); HEMATOCRIT 37.7 % (37.0-47.0); HEMOGLOBIN 12.4 G/DL (12.0-16.0); LYMPHOCYTES % (AUTO) 27.4 % (20.0-45.0); MEAN CORPUSCULAR VOLUME 84 FL (80-99); MONOCYTES % (AUTO) 13.8 % (1.0-10.0); NEUTROPHILS % (AUTO) 57.6 % (45.0-75.0); PLATELET COUNT 266 K/UL (150-450); RED BLOOD COUNT 4.47 M/UL (4.20-5.40); RED CELL DISTRIBUTION WIDTH 13.7 % (11.6-14.8); WHITE BLOOD COUNT 6.8 K/UL (4.8-10.8)
--- NOTE | 2020-06-30 07:18 | NUR ---
HAND-OFF: Report given to Lesvia RN.
[2020-06-30 07:23] LABS: ALBUMIN 2.7 G/DL (3.4-5.0); ALBUMIN/GLOBULIN RATIO 0.6 (1.0-2.7); BILIRUBIN,TOTAL 0.3 MG/DL (0.2-1.0); CALCIUM 8.1 MG/DL (8.5-10.1); CREATININE 1.2 MG/DL (0.55-1.30)
--- NOTE | 2020-06-30 07:39 | NUR ---
NURSE NOTES: Received report from CECIL Persaud. Patient received lying in bed eating breakfast. Currently on room air, no s/sx of SOB/Distress, no c/o any discomfort as of the moment. IV site located on Left Wrist gauge 22. Asymptomatic, inplace and intact. Bed placed on lowest and locked, call light placed within reach and will continue to monitor for any changes in condition.
[2020-06-30] MEDS: Aspirin Baby 81mg ORAL SCH (08:27)
[2020-06-30] MEDS: Docusate 100mg cap ORAL SCH ×2 (08:27→20:39)
[2020-06-30] MEDS: Enoxaparin 40mg Inj SUBQ SCH (08:27)
[2020-06-30] MEDS: Memantine 10mg tab ORAL SCH ×2 (08:28→17:07)
[2020-06-30] MEDS: Sertraline 50mg tab ORAL SCH (08:29)
--- NOTE | 2020-06-30 09:51 | General Progress Note ---
Subjective Allergies: Coded Allergies: No Known Allergies (Unverified , 05/20/16) Subjective feels better Objective Last 24 Hour Vital Signs Date Time Temp Pulse Resp B/P (MAP) Pulse Ox O2 Delivery O2 Flow Rate FiO2 06/30/20 09:00 Room Air 06/30/20 08:50 98.7 72 18 129/69 (89) 96 06/30/20 08:45 72 129/69 06/30/20 04:51 98.4 75 20 155/76 (102) 96 06/30/20 04:00 98.4 74 20 155/76 (102) 96 06/30/20 00:00 97.0 73 18 131/79 (96) 96 06/29/20 21:00 Room Air 06/29/20 20:00 97.3 76 18 166/96 (119) 93 06/29/20 16:00 99.3 83 19 138/70 (92) 95 06/29/20 12:00 97.9 83 19 161/73 (102) 95 Intake and Output 06/29/20 06/30/20 19:00 07:00 Intake Total 775 ml Balance 775 ml Intake Oral 720 ml IV Total 55 ml # Voids 4 Laboratory Tests 06/30/20 05:50: White Blood Count 6.8, Red Blood Count 4.47, Hemoglobin 12.4, Hematocrit 37.7, Mean Corpuscular Volume 84, Mean Corpuscular Hemoglobin 27.8, Mean Corpuscular Hemoglobin Concent 33.0, Red Cell Distribution Width 13.7, Platelet Count 266, Mean Platelet Volume 6.1L, Neutrophils (%) (Auto) 57.6, Lymphocytes (%) (Auto) 27.4, Monocytes (%) (Auto) 13.8H, Eosinophils (%) (Auto) 0.2, Basophils (%) (Auto) 0.9, Sodium Level 140, Potassium Level 4.0, Chloride Level 105, Carbon Dioxide Level 26, Anion Gap 9, Blood Urea Nitrogen 12, Creatinine 1.2, Estimat Glomerular Filtration Rate 43.0, Glucose Level 119H, Calcium Level 8.1L, Total Bilirubin 0.3, Aspartate Amino Transf (AST/SGOT) 24, Alanine Aminotransferase (ALT/SGPT) 32, Alkaline Phosphatase 75, Total Protein 7.2, Albumin 2.7L, Globulin 4.5, Albumin/Globulin Ratio 0.6L Height (Feet): 5 Height (Inches): 2.00 Weight (Pounds): 158 Cardiovascular: normal rate Respiratory/Chest: lungs clear Abdomen: non tender, soft Assessment/Plan Problem List: (1) Pyelonephritis ICD Codes: N12 - Tubulo-interstitial nephritis, not specified as acute or chronic SNOMED: 11135959 (2) Hypertension ICD Codes: I10 - Essential (primary) hypertension SNOMED: 55752536 (3) Acute renal failure ICD Codes: N17.9 - Acute kidney failure, unspecified SNOMED: 45075984 (4) Diabetes ICD Codes: E11.9 - Type 2 diabetes mellitus without complications SNOMED: 11281402 (5) Abnormal finding on diagnostic imaging of right kidney ICD Codes: R93.421 - Abnormal radiologic findings on diagnostic imaging of right kidney SNOMED: 799759912, 831046373 Assessment/Plan: abxs PT follow labs Dorian Leslie MD Jun 30, 2020 09:51
--- NOTE | 2020-06-30 12:00 | NUR ---
CASE MANAGEMENT: Faxed clinical info (face sheet / H&P/ ER MD report/ lab and imaging reports inc admit order / progress notes) to CLAUDE BA @ [phone].
--- NOTE | 2020-06-30 15:00 | Consultation ---
DATE OF CONSULTATION: 06/30/2020 INFECTIOUS DISEASES CONSULTATION CONSULTING PHYSICIAN: Napoleon Leslie MD. PRIMARY ATTENDING PHYSICIAN: Dorian Leslie MD. REASON FOR CONSULTATION: Sepsis, UTI, pyelonephritis. HISTORY OF PRESENT ILLNESS: This is an 80-year-old female admitted on 06/28/2020 complaining of abdominal pain. She had fever of 100.8, leukocytosis of 15.4 at the time of admission. PAST MEDICAL HISTORY: Diabetes mellitus, hypertension, COPD, gastroesophageal reflux disease, hyperlipidemia, endoscopic procedure one week before admission. ALLERGIES: No known drug allergies. MEDICATIONS: Zosyn, Mylanta, Protonix, Zoloft, Actos, enoxaparin, atenolol, aspirin, Ambien, Colace, atorvastatin, memantine, Tylenol, Phenergan. SOCIAL HISTORY: Single, lives at home with family. No history of drug abuse, alcohol abuse, or smoking. REVIEW OF SYSTEMS: The patient has no complaints right now. PHYSICAL EXAMINATION: VITAL SIGNS: Temperature 98.2, pulse 60, blood pressure 140/69. GENERAL APPEARANCE: Seems to be obese. HEAD AND NECK: [place] conjunctiva. HEART: Normal rate. LUNGS: Clear. ABDOMEN: Soft. There is no CVA tenderness. EXTREMITIES: No edema. NEUROLOGIC: Awake, alert, responsive. LABORATORY AND DIAGNOSTIC DATA: WBC today 6.8, hemoglobin 12.4, hematocrit 37.7, and platelets is 266. Sodium 140, potassium 4, chloride 105, bicarb 26, BUN 12, creatinine 1.2, glucose 119. UA showed wbc's of 5 to 10. Chest x-ray, no acute process. CT scan of the abdomen and pelvis limited assessment, low attenuation in upper part of right kidney, this raise concern for renal neoplasm, colonic diverticulosis without diverticulitis, status post previous hysterectomy, degenerative spondylosis. . Microbiology, blood cultures are negative. COVID negative. IMPRESSION: Sepsis with fever and leukocytosis, seems to have UTI, has kidney lesion that will be followed up by urologist, diabetes mellitus, hypertension, hyperlipidemia, diverticulosis. RECOMMENDATION: Continue with Zosyn. We will follow up the cultures. At the end of my exam, I thank Dr. Dorian Leslie, for involving me in the care of this patient. Napoleon Leslie M.D. DR: Elle JOB#: [id number] CC: TON
--- NOTE | 2020-06-30 19:33 | Cardiology Report ---
APPROVED REPORT EKG Measurement Heart [id number] <Conclusion> Sinus rhythm with premature atrial complexes Left ventricular hypertrophy with repolarization abnormality Abnormal ECG
--- NOTE | 2020-06-30 19:41 | NUR ---
NURSE HAND-OFF: Important Events on Shift:atb tx Patient Status: stable Diet: regular Pending Orders: n/a Pending Results/Labs:n/a Pending MD notification:n/a Latest Vital Signs: Temperature 97.5 , Pulse 58 , B/P 152 /82 , Respiratory Rate 18 , O2 SAT 97 , Room Air, O2 Flow Rate . Vital Sign Comment: stable Latest Connell Fall Score: 20 Fall Risk: Low Risk Safety Measures: Call light Within Reach, Bed Alarm Zone 1, Side Rails Side Rails x2, Bed position Low and Locked. Fall Precautions: Yellow Socks Yellow Gown Door Sign Patient Fall Education Report given to edgar Persaud.
--- NOTE | 2020-06-30 19:45 | NUR ---
NURSE NOTES: Received report from Lesvia RN.The patient is alert and oriented x4 Latvian speaker, is calm and cooperative with her care and does not appear to be in any active distress at this time. She is on RA with Resp even and unlabored. She has a bedside commode and a Left wrist 24g IV line that is patent and asymptomatic.The skin is intact and is warm and soft with active bowel sounds noted in all 4 quadrant.The bed in low and locked level, call light within easy reach and siderails up x2. will continue to monitor as indicated.
[2020-06-30] MEDS: Atorvastatin 20mg tab ORAL SCH (20:40)
[2020-07-01] VITALS: BP 154/86
[2020-07-01] MEDS: Zoysn 3.37gm in NS 100ML IVPB SCH ×2 (03:07→10:11)
[2020-07-01 04:00] VITALS: BP 144/81
--- NOTE | 2020-07-01 04:00 | NUR ---
NURSE NOTES: The patient has bowel movement x2 tonight and is alert and stable.She does not exhibit any sign or symptom of pain noted at this time and was able to sleep for 7 hrs.Will continue to monitor
[2020-07-01 06:29] LABS: EOSINOPHILS % (AUTO) 0.4 % (0.0-3.0); HEMATOCRIT 37.2 % (37.0-47.0); HEMOGLOBIN 12.4 G/DL (12.0-16.0); LYMPHOCYTES % (AUTO) 29.5 % (20.0-45.0); MEAN CORPUSCULAR VOLUME 85 FL (80-99); MONOCYTES % (AUTO) 17.6 % (1.0-10.0); NEUTROPHILS % (AUTO) 51.6 % (45.0-75.0); PLATELET COUNT 272 K/UL (150-450); RED BLOOD COUNT 4.39 M/UL (4.20-5.40); RED CELL DISTRIBUTION WIDTH 13.6 % (11.6-14.8); WHITE BLOOD COUNT 6.7 K/UL (4.8-10.8)
[2020-07-01 06:34] LABS: CALCIUM 8.5 MG/DL (8.5-10.1); CREATININE 1.2 MG/DL (0.55-1.30); POTASSIUM 4.3 MMOL/L (3.5-5.1)
--- NOTE | 2020-07-01 07:22 | NUR ---
HAND-OFF: Report given to Iam JACOB.
--- NOTE | 2020-07-01 07:45 | NUR ---
NURSE NOTES: Received report from CECIL Persaud. patient seen in bed, AAOX4, eating breakfast. Patient on room air, breathing is even and unlabored in no apparent distress noted at this time. IV site patent and intact. Patient is able to ambulate with assist, bed side commode provided. RN instructed patient to use call light for assistance before ambulating. Bed is locked and placed in lowest position with bed alarm on. call light within reach. Will continue to monitor
[2020-07-01 08:00] VITALS: BP 155/62
[2020-07-01] MEDS: Aspirin Baby 81mg ORAL SCH (08:33)
[2020-07-01] MEDS: Memantine 10mg tab ORAL SCH (08:33)
[2020-07-01] MEDS: Sertraline 50mg tab ORAL SCH (08:33)
[2020-07-01] MEDS: Enoxaparin 40mg Inj SUBQ SCH (08:34)
[2020-07-01] MEDS: Docusate 100mg cap ORAL SCH (08:38)
--- NOTE | 2020-07-01 09:15 | NUR ---
PT EVALUATION NOTE Patient seen for initial evaluation and treatment initiated. Patient presents with generalized weakness and decreased balance which impairs patient's ability to perform mobility tasks safely. Patient requires SBA for transfers with FWW. Patient able to ambulate 125 ft with SBA/CGA and FWW, slightly unsteady however no loss of balance. Patient requires verbal cues for proper management of FWW. Patient will benefit from skilled inpatient PT intervention to increase strength and postural stability for improved level of functional mobility and safety. Recommend discharge home once medically cleared by MD. Patient has rollator at home. Addendum: 07/01/20 at 1237 by DANY TAM PT Amended: Links added.
[2020-07-01 12:00] VITALS: BP 128/72
--- NOTE | 2020-07-01 12:33 | Infectious Diseases Prog Note ---
Assessment/Plan Assessment/Plan IMPRESSION: Sepsis with fever and leukocytosis, UTI, has Kidney lesion that will be followed up by urologist, Diabetes mellitus, Hypertension, hyperlipidemia, diverticulosis. RECOMMENDATION: Can be discharged with PO Ciprofloxacin X 5 days Case was D/W primary MD Subjective ROS Limited/Unobtainable: No Constitutional: Reports: no symptoms Respiratory: Reports: no symptoms Gastrointestinal/Abdominal: Reports: no symptoms Genitourinary: Reports: no symptoms Allergies: Coded Allergies: No Known Allergies (Unverified , 05/20/16) Objective Last 24 Hour Vital Signs Date Time Temp Pulse Resp B/P (MAP) Pulse Ox O2 Delivery O2 Flow Rate FiO2 07/01/20 09:00 Room Air 07/01/20 08:33 74 155/62 07/01/20 08:00 97.2 74 18 155/62 (93) 97 07/01/20 04:00 97.7 79 19 144/81 (102) 95 07/01/20 00:00 98.1 79 19 154/86 (108) 97 06/30/20 21:00 Room Air 06/30/20 20:00 97.5 72 17 160/82 (108) 96 06/30/20 16:00 97.5 58 18 152/82 (105) 97 Height (Feet): 5 Height (Inches): 2.00 Weight (Pounds): 158 General Appearance: no acute distress HEENT: mucous membranes moist Respiratory/Chest: lungs clear Cardiovascular: normal rate Abdomen: soft, non tender Extremities: no edema Neurologic/Psychiatric: alert, oriented x 3, responsive Laboratory Tests Test 07/01/20 05:30 White Blood Count 6.7 K/UL (4.8-10.8) Red Blood Count 4.39 M/UL (4.20-5.40) Hemoglobin 12.4 G/DL (12.0-16.0) Hematocrit 37.2 % (37.0-47.0) Mean Corpuscular Volume 85 FL (80-99) Mean Corpuscular Hemoglobin 28.1 PG (27.0-31.0) Mean Corpuscular Hemoglobin Concent 33.2 G/DL (32.0-36.0) Red Cell Distribution Width 13.6 % (11.6-14.8) Platelet Count 272 K/UL (150-450) Mean Platelet Volume 5.9 FL (6.5-10.1) L Neutrophils (%) (Auto) 51.6 % (45.0-75.0) Lymphocytes (%) (Auto) 29.5 % (20.0-45.0) Monocytes (%) (Auto) 17.6 % (1.0-10.0) H Eosinophils (%) (Auto) 0.4 % (0.0-3.0) Basophils (%) (Auto) 1.0 % (0.0-2.0) Sodium Level 139 MMOL/L (136-145) Potassium Level 4.3 MMOL/L (3.5-5.1) Chloride Level 103 MMOL/L (98-107) Carbon Dioxide Level 28 MMOL/L (21-32) Anion Gap 8 mmol/L (5-15) Blood Urea Nitrogen 17 mg/dL (7-18) Creatinine 1.2 MG/DL (0.55-1.30) Estimat Glomerular Filtration Rate 43.0 mL/min (>60) Glucose Level 122 MG/DL (74-106) H Calcium Level 8.5 MG/DL (8.5-10.1) Current Medications Medications (Trade) Dose Ordered Sig/Camilo Route PRN Reason Start Time Stop Time Status Last Admin Dose Admin Acetaminophen (Tylenol) 650 mg Q4H PRN ORAL Mild Pain (Pain Scale 1-3) 06/28/20 17:00 07/28/20 16:59 06/30/20 12:37 Acetaminophen (Tylenol) 650 mg Q4H PRN ORAL Temp >100.5 06/28/20 17:00 07/28/20 16:59 Al Hydroxide/Mg Hydroxide (Mylanta) 30 ml TIDPRN PRN ORAL heartburn 06/29/20 12:30 07/29/20 12:29 06/29/20 17:41 Aspirin (ASA) 81 mg DAILY ORAL 06/29/20 09:00 08/13/20 08:59 07/01/20 08:33 Atenolol (Tenormin) 50 mg DAILY ORAL 06/29/20 09:00 07/29/20 08:59 07/01/20 08:33 Atorvastatin Calcium (Lipitor) 20 mg BEDTIME ORAL 06/28/20 21:00 09/26/20 20:59 06/30/20 20:40 Dextrose (Dextrose 50%) 25 ml Q30M PRN IV Hypoglycemia 06/28/20 17:00 09/26/20 16:59 Dextrose (Dextrose 50%) 50 ml Q30M PRN IV Hypoglycemia 06/28/20 17:00 09/26/20 16:59 Docusate Sodium (Colace) 100 mg EVERY 12 HOURS ORAL 06/28/20 21:00 07/28/20 20:59 06/30/20 20:39 Enoxaparin Sodium (Lovenox) 40 mg DAILY SUBQ 06/29/20 09:00 09/27/20 08:59 07/01/20 08:34 Memantine (Namenda) 10 mg TWICE A DAY ORAL 06/28/20 18:00 07/28/20 17:59 07/01/20 08:33 Ondansetron HCl (Zofran) 4 mg Q6H PRN IVP Nausea & Vomiting 06/28/20 17:00 07/28/20 16:59 Pantoprazole (Protonix) 40 mg DAILY ORAL 06/29/20 12:30 07/29/20 12:29 07/01/20 08:33 Pioglitazone HCl (Actos) 15 mg DAILY ORAL 06/29/20 09:00 07/29/20 08:59 07/01/20 08:33 Piperacillin Sod/ Tazobactam Sod 3.375 gm/Sodium Chloride 110 ml @ 27.5 mls/hr Q8H IVPB 06/29/20 18:00 07/06/20 17:59 07/01/20 10:11 Promethazine HCl/ Codeine (Phenergan with Codeine) 5 ml Q4H PRN ORAL For Cough 06/28/20 16:45 07/28/20 16:44 Sertraline HCl (Zoloft) 25 mg DAILY ORAL 06/29/20 09:00 07/29/20 08:59 07/01/20 08:33 Zolpidem Tartrate (Ambien) 5 mg HSPRN PRN ORAL Insomnia 06/28/20 21:00 07/05/20 20:59 Napoleon Leslie MD Jul 01, 2020 12:33
--- NOTE | 2020-07-01 12:48 | General Progress Note ---
Subjective Allergies: Coded Allergies: No Known Allergies (Unverified , 05/20/16) Subjective feels better Objective Last 24 Hour Vital Signs Date Time Temp Pulse Resp B/P (MAP) Pulse Ox O2 Delivery O2 Flow Rate FiO2 07/01/20 12:00 97.2 68 20 128/72 (90) 97 07/01/20 09:00 Room Air 07/01/20 08:33 74 155/62 07/01/20 08:00 97.2 74 18 155/62 (93) 97 07/01/20 04:00 97.7 79 19 144/81 (102) 95 07/01/20 00:00 98.1 79 19 154/86 (108) 97 06/30/20 21:00 Room Air 06/30/20 20:00 97.5 72 17 160/82 (108) 96 06/30/20 16:00 97.5 58 18 152/82 (105) 97 Laboratory Tests 07/01/20 05:30: White Blood Count 6.7, Red Blood Count 4.39, Hemoglobin 12.4, Hematocrit 37.2, Mean Corpuscular Volume 85, Mean Corpuscular Hemoglobin 28.1, Mean Corpuscular Hemoglobin Concent 33.2, Red Cell Distribution Width 13.6, Platelet Count 272, Mean Platelet Volume 5.9L, Neutrophils (%) (Auto) 51.6, Lymphocytes (%) (Auto) 29.5, Monocytes (%) (Auto) 17.6H, Eosinophils (%) (Auto) 0.4, Basophils (%) (Auto) 1.0, Sodium Level 139, Potassium Level 4.3, Chloride Level 103, Carbon Dioxide Level 28, Anion Gap 8, Blood Urea Nitrogen 17, Creatinine 1.2, Estimat Glomerular Filtration Rate 43.0, Glucose Level 122H, Calcium Level 8.5 Height (Feet): 5 Height (Inches): 2.00 Weight (Pounds): 158 Cardiovascular: normal rate Respiratory/Chest: lungs clear Edema: no edema noted Generalized Assessment/Plan Problem List: (1) Pyelonephritis ICD Codes: N12 - Tubulo-interstitial nephritis, not specified as acute or chronic SNOMED: 71446363 (2) Hypertension ICD Codes: I10 - Essential (primary) hypertension SNOMED: 56631871 (3) Acute renal failure ICD Codes: N17.9 - Acute kidney failure, unspecified SNOMED: 26429530 (4) Diabetes ICD Codes: E11.9 - Type 2 diabetes mellitus without complications SNOMED: 64293813 (5) Abnormal finding on diagnostic imaging of right kidney ICD Codes: R93.421 - Abnormal radiologic findings on diagnostic imaging of right kidney SNOMED: 730394512, 084054944 Assessment/Plan: Po chuck as outpt Dc today Dorian Leslie MD Jul 01, 2020 12:47
[2020-07-01] MEDS ORDERED: Flu Vaccine Quadrivalent IM ONE (14:00)
--- NOTE | 2020-07-01 15:46 | NUR ---
NURSE NOTES: Patient was discharged in stable condition, patient was picked up by daughter. IV site taken out. Patient requested for flu vaccine upon discharged. RN obtain order and administered vaccine. Patient signed discharge packet as well as belongings list. RN instructed daughter and patient regarding discharge medication of antibiotics. RN provided PCP's contact information for further questions or appointments needed. RN then escorted patient and daughter to the lobby via wheel chair and assisted patient to getting in the car safely.
--- NOTE | 2020-07-02 11:17 | Discharge Summary ---
Discharge Summary Discharge Summary _ DATE OF ADMISSION: 06/28/2020 DATE OF DISCHARGE: 07/01/2020 DISCHARGED BY: Dr. Dorian Leslie REASON FOR ADMISSION: 80 years old female with past medical history of hypertension, diabetes mellitus, had endoscopy last week with unknown results , presented with 3 days of abdominal pain with radiation . She also reported pain and burning with urination. She denied chest pain or shortness of breath. She endorsed some fever . Upon evaluation she had fever 100.8 , blood pressure was 167/68, pulse oximetry was 97% room air. Laboratory work-up revealed leukocytosis WBC 15.4 , stable hemoglobin, hematocrit and platelet count. Sodium 133, potassium 4.2. BUN 11, creatinine 1.2. Lactic acid 0.9. Stable LFT and lipase. Urinalysis revealed +1 protein , +2 leukocyte esterase , pyuria. Troponin negative . EKG revealed sinus rhythm, no acute ischemic changes. Rapid COVID-19 in ED was negative. Chest x-ray revealed no acute cardiopulmonary pathology. CT scan of the abdomen and pelvis revealed low attenuation area in the upper pole right kidney , measuring 2 cm in diameter with concern of renal neoplasm. However this also could represent an area of focal nephritis. Colonic diverticulosis without evidence of diverticulitis. In emergency department patient received analgesic , antiemetic , Pepcid, 1 L of fluids , empiric antibiotic and admitted for further management. CONSULTANTS: ID specialist Dr. Napoleon Leslie Urologist Dr. Rizo [facility]SE: Patient admitted to medical surgical floor. Patient was hydrated and provided with broad-spectrum antibiotic. Pain management was addressed. Urologist closely reviewed CAT scan of the abdomen and pelvis, and concluded that the findings appeared to be small and not particularly concerning . He recommended observation and surveillance with repeat CT scan in 6 to 12 months to ensure that the mass was not growing. If mass does not demonstrate any growth within the next year, he would consider that as a benign finding without need for further imaging. Blood cultures were negative. Leukocytosis and fever resolved. Antibiotic changed to oral upon discharge to complete the course. GI prophylaxis provided. Blood pressure and blood sugar were closely monitored. Home medication continued. Renal parameters and electrolytes were closely monitored. Electrolytes corrected as needed and nephrotoxic's were avoided , On the next day after admission, creatinine went up to 1.4 . patient was further hydrated . creatinine decreased down to normal. DVT and GI prophylaxis provided. Supportive care provided. Patient clinically stabilized and was ready for for discharge home FINAL DIAGNOSES: Sepsis with fever and leukocytosis UTI/pyelonephritis Abnormal findings on diagnostic imaging of right kidney/right kidney lesion Acute kidney injury - resolved Diabetes mellitus Hypertension Hyperlipidemia Diverticulosis without evidence of diverticulitis DISCHARGE MEDICATIONS: See Medication Reconciliation list. DISCHARGE INSTRUCTIONS: Patient was discharged home. Up with a primary care provider in 1 week. Patient was explained that she need to follow-up with a CT scan of the abdomen pelvis in 6 to 12 months to ensure that the mass is not growing I have been assigned to dictate discharge summary for this account. I was not involved in the patient's management. Val Land NP Jul 02, 2020 11:17
--- NOTE | 2020-07-02 19:50 | CDS Physician Query ---
Clarification is required for compliance, coding accuracy, and to reflect severity of illness for this patient Dear Dr. Leslie Date: 07/02/20 Market Research Consultant/CDS Name: Prince Berry Clarification is needed for one (or more) of the following conditions in order to accurately assign the "present on admission' indicator. Please choose the answer that best indicates whether the associated condition was present at the time of the order for inpatient admission. Thank you. DIAGNOSIS: SEPSIS Sepsis with fever and leukocytosis, UTI (Infectious Disease Progress Note, 06/28/20) Pyelonephritis, Acute renal failure, hypertension (IM Progress Notes, 06/28/20) Vitals: T 100.8, 99.5 HR 92,90 RR 18 Labs: WBC 15.4, 11.0 Medications: PO Ciprofloxacin X 5 days Was the SEPSIS Present on admission? [ ] YES [ ] NO [ ] Clinically Undeterminable Physician signature Date Please also document in your Progress Notes and/or Discharge Summary and indicate if the condition was present on admission. TON
== END 2020-07-01 15:40 | disposition home or self-care (01) | DRG 720 ==
LOC: EDBD 09:08 → EMR 09:35 → 4E 13:16 → EDBEDREQ 15:21 → 4E 15:40
DX: A41.9 Sepsis, unspecified organism (principal); N39.0 Urinary tract infection, site not specified; N12 Tubulo-interstitial nephritis, not specified as acute or chronic; K21.9 Gastro-esophageal reflux disease without esophagitis; I10 Essential (primary) hypertension; E78.5 Hyperlipidemia, unspecified; N17.9 Acute kidney failure, unspecified; E11.9 Type 2 diabetes mellitus without complications; K57.90 Diverticulosis of intestine, part unspecified, without perforation or abscess without bleeding; N28.9 Disorder of kidney and ureter, unspecified; Z23 Encounter for immunization
CPT/HCPCS: 36415; 71045; 74177; 80048; 80053; 80061; 81003; 82962; 83036; 83605; 83690; 84443; 84484; 85025; 85610; 85730; 87040; 90689; 93005; 96361; 96365; 96375; 99285; J2405; J7030; U0002

== ENCOUNTER 2020-07-18 21:01 | Emergency (ER) | payer MEDICARE, MEDICAID ==
[~2020-07-18] VITALS: Ht 152.4 cm; Wt 49.9 kg
[~2020-07-18 21:01] MED LIST changes: +ASPIRIN81 MG ORAL
[2020-07-18 21:14] VITALS: BP 150/90
[2020-07-18] MEDS ORDERED: Morphine Sulfate 2mg/ml Inj(IV/IM USE ONLY) IVP ONE (21:15)
[2020-07-18] MEDS ORDERED: Omnipaque-300 100ml vial INJ PRN (21:15)
--- NOTE | 2020-07-18 21:24 | Emergency Room Report ---
History of Present Illness General Chief Complaint: Abdominal Pain Source: Patient Present Illness HPI Disclaimer: Please note that this report is being documented using [employer] technology. This can lead to erroneous entry secondary to incorrect interpretation by the dictating instrument. HPI: 80-year-old female with a history of diabetes, hypertension recently discharged from this facility for pyelonephritis presents for evaluation of abdominal pain. The patient is complaining of 5 days epigastric discomfort. Recent CT scan showed diverticulosis without diverticulitis and possible renal neoplasm versus focal nephritis however compared to a prior CT it showed that this is not growing and was considered benign. She is complaining of burning epigastric pain. Decreased ability to eat over the past 5 days. Denies vomiting. Reports nausea. Denies diarrhea or constipation. Denies dysuria or hematuria. Denies flank pain. States she was compliant with her antibiotics. Denies prior history of surgery. PMH: Diabetes and hypertension PSH: Reviewed Allergies: Denied Social Hx: Denied Allergies: Coded Allergies: No Known Allergies (Unverified , 05/20/16) COVID-19 Screening Contact w/high risk pt: No Experienced COVID-19 symptoms?: No COVID-19 Testing performed SOCIAL WORK ASSISTANT: No Patient History Now: No Nursing Documentation-PMH Hx Cardiac Problems: Yes Hx Hypertension: Yes Hx COPD: Yes Hx Diabetes: Yes Hx Cancer: No Hx Gastrointestinal Problems: Yes Hx Neurological Problems: No Review of Systems All Other Systems: negative except mentioned in HPI Physical Exam Vital Signs Date Time Temp Pulse Resp B/P (MAP) Pulse Ox O2 Delivery O2 Flow Rate FiO2 07/18/20 21:04 98.4 98 19 150/90 (110) 98 Room Air General: Awake and alert, no acute distress HEENT: NC/AT. EOMI. Cardiovascular: RRR. S1 and S2 normal. No murmur appreciated Resp: Normal work of breathing. No cough, wheezing or crackles appreciated Abdomen: Abdomen is soft, nondistended. Tenderness palpation epigastrium and left upper quadrant. No guarding. No masses. No significant tenderness in the lower quadrants. Skin: Intact. No abrasions, laceration or rash over the exposed skin MSK: Normal tone and bulk. Moving all extremities. No obvious deformity. Neuro: Awake and alert. Mentating appropriately. Medical Decision Making ER Course Is an 80-year-old female presenting for evaluation of epigastric pain. Differential includes but not limited to gastritis, gastroenteritis, pancreatitis, cholecystitis, bowel obstruction, GERD among others. Labs have returned within normal limits. No leukocytosis, kidney function at baseline, no electrolyte abnormalities, no evidence of urinary tract infection lactic acid is within normal limits. Patient is resting comfortably after receiving IV fluids and small dose of pain medication. She is pending CT scan. Even her recent scan if repeat is largely unchanged I do believe the patient is stable for outpatient follow-up. Signed out to oncoming physician pending CT results and ultimate disposition. Laboratory Tests Test 07/18/20 21:11 07/18/20 22:20 White Blood Count 8.8 K/UL (4.8-10.8) Red Blood Count 4.12 M/UL (4.20-5.40) L Hemoglobin 12.0 G/DL (12.0-16.0) Hematocrit 36.9 % (37.0-47.0) L Mean Corpuscular Volume 90 FL (80-99) Mean Corpuscular Hemoglobin 29.2 PG (27.0-31.0) Mean Corpuscular Hemoglobin Concent 32.6 G/DL (32.0-36.0) Red Cell Distribution Width 14.7 % (11.6-14.8) Platelet Count 264 K/UL (150-450) Mean Platelet Volume 7.2 FL (6.5-10.1) Neutrophils (%) (Auto) 61.0 % (45.0-75.0) Lymphocytes (%) (Auto) 26.3 % (20.0-45.0) Monocytes (%) (Auto) 10.5 % (1.0-10.0) H Eosinophils (%) (Auto) 1.1 % (0.0-3.0) Basophils (%) (Auto) 1.1 % (0.0-2.0) Sodium Level 138 MMOL/L (136-145) Potassium Level 4.5 MMOL/L (3.5-5.1) Chloride Level 103 MMOL/L (98-107) Carbon Dioxide Level 26 MMOL/L (21-32) Anion Gap 10 mmol/L (5-15) Blood Urea Nitrogen 22 mg/dL (7-18) H Creatinine 1.3 MG/DL (0.55-1.30) Estimated Glomerular Filtration Rate 39.3 mL/min (>60) Glucose Level 129 MG/DL (74-106) H Lactic Acid Level 0.80 mmol/L (0.4-2.0) Calcium Level 8.7 MG/DL (8.5-10.1) Total Bilirubin 0.4 MG/DL (0.2-1.0) Aspartate Amino Transferase (AST) 26 U/L (15-37) Alanine Aminotransferase (ALT) 20 U/L (12-78) Alkaline Phosphatase 90 U/L (46-116) Total Protein 7.3 G/DL (6.4-8.2) Albumin 3.7 G/DL (3.4-5.0) Globulin 3.6 g/dL Albumin/Globulin Ratio 1.0 (1.0-2.7) Lipase 238 U/L (73-393) Urine Color Pale yellow Urine Appearance Clear Urine pH 6.5 (4.5-8.0) Urine Specific [place] 1.005 (1.005-1.035) Urine Protein Negative (NEGATIVE) Urine Glucose (UA) Negative (NEGATIVE) Urine Ketones Negative (NEGATIVE) Urine Blood Negative (NEGATIVE) Urine Nitrite Negative (NEGATIVE) Urine Bilirubin Negative (NEGATIVE) Urine Urobilinogen Normal MG/DL (0.0-1.0) Urine Leukocyte Esterase Negative (NEGATIVE) Last Vital Signs Date Time Temp Pulse Resp B/P (MAP) Pulse Ox O2 Delivery O2 Flow Rate FiO2 07/18/20 21:04 98.4 98 19 150/90 (110) 98 Room Air Signed Out To: Dr. Murillo Scripts Ondansetron Odt* (ZOFRAN ODT*) 4 Mg Tab.rapdis 4 MG BC EVERY 8 HOURS, #10 TAB 0 Refills Prov: Neva Murillo D.O. 07/18/20 Referrals: NOT CHOSEN IPA/,REFERRING (PCP) Michael Guardado MD Jul 18, 2020 21:24
[2020-07-18 22:08] LABS: CALCIUM 8.7 MG/DL (8.5-10.1); CREATININE 1.3 MG/DL (0.55-1.30); POTASSIUM 4.5 MMOL/L (3.5-5.1)
[2020-07-18 22:10] LABS: ALBUMIN 3.7 G/DL (3.4-5.0); BILIRUBIN,TOTAL 0.4 MG/DL (0.2-1.0)
[2020-07-18 22:12] LABS: BASOPHILS % (AUTO) 1.1 % (0.0-2.0); EOSINOPHILS % (AUTO) 1.1 % (0.0-3.0); HEMATOCRIT 36.9 % (37.0-47.0); LYMPHOCYTES % (AUTO) 26.3 % (20.0-45.0); MEAN CORPUSCULAR VOLUME 90 FL (80-99); MONOCYTES % (AUTO) 10.5 % (1.0-10.0); PLATELET COUNT 264 K/UL (150-450); RED BLOOD COUNT 4.12 M/UL (4.20-5.40); RED CELL DISTRIBUTION WIDTH 14.7 % (11.6-14.8); WHITE BLOOD COUNT 8.8 K/UL (4.8-10.8)
--- NOTE | 2020-07-18 22:15 | NUR ---
ED Nurse Note: Received patient from [facility]. patient brought in by ambulance lafd RA34 from home c/o abdominal pain x1week. Denies nausea/ vomiting/ diarrhea. Pt was seen here last week and was dc with atb but no relief. patient in gown; attached to monitor. patient ao4 with no acute distress. vitals stable. distended abdomen noted. all safety measures met.
--- NOTE | 2020-07-18 22:22 | NUR ---
ED Nurse Note: urine collected; setn down to lab.
--- NOTE | 2020-07-18 22:30 | NUR ---
ED Nurse Note: patient denies pain. patient down to imaging via gurney with manufacturing maintenance technician.
--- NOTE | 2020-07-18 22:49 | NUR ---
ED Nurse Note: patient back from ct via gurney. reattached to monitor. patient and vitals stable to baseline.
[2020-07-18 22:50] LABS: APPEARANCE,URINE CLEAR; BILIRUBIN, URINE NEGATIVE (NEGATIVE); COLOR,URINE PALE YELLOW; GLUCOSE, URINE (UA) NEGATIVE (NEGATIVE); KETONES,URINE NEGATIVE (NEGATIVE); LEUKOCYTE ESTERASE ,URINE NEGATIVE (NEGATIVE); NITRITE,URINE NEGATIVE (NEGATIVE); PH,URINE 6.5 (4.5-8.0); PROTEIN,URINE NEGATIVE (NEGATIVE); UROBILINOGEN,URINE NORMAL MG/DL (0.0-1.0)
--- NOTE | 2020-07-18 22:52 | Diagnostic Imaging Report ---
EXAM: CT Abdomen and Pelvis With Intravenous Contrast CLINICAL HISTORY: ABD PAIN TECHNIQUE: Axial computed tomography images of the abdomen and pelvis with intravenous contrast. CTDI is 7.7 mGy and DLP is 358.9 mGy-cm. One or more of the following dose reduction techniques were used: automated exposure control, adjustment of the mA and/or kV according to patient size, use of iterative reconstruction technique. COMPARISON: CT abdomen and pelvis dated 06/28/2020 FINDINGS: Lung bases: Unremarkable. ABDOMEN: Liver: Cirrhotic liver. Gallbladder and bile ducts: Unremarkable. Pancreas: Unremarkable. Spleen: Unremarkable. Adrenals: Unremarkable. Kidneys and ureters: Cyst within left kidney. Stomach and bowel: Unremarkable. PELVIS: Appendix: No findings to suggest acute appendicitis. Bladder: Unremarkable. Reproductive: Uterus is surgically absent. ABDOMEN and PELVIS: Intraperitoneal space: Unremarkable. Bones/joints: Post surgical changes within the left femur. No acute fracture. No dislocation. Soft tissues: Unremarkable. Vasculature: Vascular calcifications. Lymph nodes: Unremarkable. IMPRESSION: No acute findings in the abdomen or pelvis.
[2020-07-18 23:10] VITALS: BP 134/89
--- NOTE | 2020-07-18 23:11 | NUR ---
Note amor in EDM - 07/18/20 at 2320 by [facility] ER DISCHARGE NOTE: Patient is cleared to be discharged per ERMD, pt is aox4, on room air, with stable vital signs. pt was given dc and prescription instructions, pt was able to verbalize understanding, pt id band and iv site removed without complications. pt is able to ambulate with steady gait. pt took all belongings.
[2020-07-18] MEDS ORDERED: Lidocaine 2% Visc 15ml soln ONE (23:13)
[2020-07-18] MEDS ORDERED: Lidocaine 2% Visc 15ml soln ORAL ONE (23:15)
--- NOTE | 2020-07-18 23:17 | NUR ---
ED Nurse Note: ekg done at bedside by [facility].
--- NOTE | 2020-07-18 23:22 | Emergency Room Report ---
Physical Exam Vital Signs Date Time Temp Pulse Resp B/P (MAP) Pulse Ox O2 Delivery O2 Flow Rate FiO2 07/18/20 21:04 98.4 98 19 150/90 (110) 98 Room Air Sp02 EP Interpretation: reviewed, normal Medical Decision Making Diagnostic Impression: Primary Impression: Abdominal pain Additional Impression: Dry mouth ER Course I, Dr Neva Murillo, have assumed care of the patient. Initial workup, history, and physical performed by previous provider has been reviewed by myself and I have performed my own physical exam of the patient. I reviewed patient's previous medical records. Patient was recently discharged from the hospital for pyelonephritis. Leukocytosis downtrending. Blood cultures are negative. Patient was discharged on antibiotics. She has been compliant with all of these. CT scan at that time showed 2 cm right renal nephritis versus neoplasm. Urology saw the patient and evaluated her CT scan. Did not recommend acute surgical intervention at this time. Recommend outpatient CT scan in 6 to 12 months. Abdominal examination is nontender. Patient is more so fixated on her mouth being dry. She was provided viscous lidocaine in the ER which alleviated her symptoms. She was also able to tolerate p.o. fluid. No signs of deep space neck infection. Labs are unremarkable. Urinalysis is negative for UTI. Repeat CT is unremarkable Pertinent results reviewed with the patient. I educated the patient on the current treatment plan including the risks, benefits, and alternatives. I also discussed the extent and limitations of the current evaluation. The patient expressed understanding and agreement with plan. I recommended PMD follow-up within 1-2 days. Also advised that the patient return to the Emergency Department as soon as possible if they experience any new, persistent, or worsening symptoms. EKG Diagnostic Results EKG Time: 23:17 Rate: normal Rhythm: NSR ST Segments: no acute changes PA Scribe Text 12-lead EKG (interpreted by me) Time: 2316 Indication: Rhythm analysis Tracing visualized and Interpreted by me. Rhythm: Normal sinus rhythm Rate: 82 bpm QTc: 472 Morphology: No_significant_ST_elevations_or_depressions, No STEMI Impression: Sinus rhythm. Incomplete left bundle branch block. Left ventricular hypertrophy. Strain pattern in the high lateral leads. ST depression in 1 and aVL. No changes from previous EKG from June 2020 Rhythm Strip Diag. Results Rhythm Strip Time: 21:04 EP Interpretation: yes Rate: 98 Rhythm: NSR, no PVC's, no ectopy Reevaluation Time: 23:21 Last Vital Signs Date Time Temp Pulse Resp B/P (MAP) Pulse Ox O2 Delivery O2 Flow Rate FiO2 07/18/20 23:11 98.5 98 19 150/90 98 Room Air Status: improved Disposition: HOME, SELF-CARE Admit Decision Time: 23:21 Condition: Stable Scripts Ondansetron Odt* (ZOFRAN ODT*) 4 Mg Tab.rapdis 4 MG BC EVERY 8 HOURS, #10 TAB 0 Refills Prov: Neva Murillo D.O. 07/18/20 Referrals: NOT CHOSEN IPA/MD,REFERRING (PCP) Patient Instructions: Abdominal Pain, Adult Additional Instructions: Instructions for patient/laboratory clerk: Follow up with your physician in 1-2 days. Follow-up with your doctor sooner if your condition requires a more timely clinical reevaluation. Return to the emergency department immediately if you feel that your condition is worsening or if you have any new or concerning symptoms. Review your discharge instructions and take any prescriptions given as instructed. [facility] PROVIDES FREE OR LOW-COST HEALTH SERVICES TO PEOPLE WHO CAN SHOW PROOF THAT THEY LIVE IN [facility]. TO FIND MORE CLINICS PARTNERED WITH THE [facility] TO PROVIDE SERVICE, PLEASE CALL . Neva Murillo D.O. Jul 18, 2020 23:22
[2020-07-18] MEDS ORDERED: ONDANSETRON ODT4 MG BC (23:23)
[2020-07-18 23:29] VITALS: BP 150/90
--- NOTE | 2020-07-18 23:29 | NUR ---
ER DISCHARGE NOTE: Patient is cleared to be discharged per ERMD, pt is aox4, on room air, with stable vital signs. pt was given dc and prescription instructions, pt was able to verbalize understanding, pt id band and iv site removed without complications. pt is able to ambulate with steady gait. pt took all belongings.
--- NOTE | 2020-07-21 14:56 | Cardiology Report ---
APPROVED REPORT EKG Measurement Heart [id number] <Conclusion> Sinus rhythm with marked sinus arrhythmia Incomplete right bundle branch block Left ventricular hypertrophy with repolarization abnormality Cannot rule out Septal infarct, age undetermined Abnormal ECG
== END 2020-07-18 23:29 | disposition home or self-care (01) ==
LOC: EDUNIT# 21:01 → EDBD 21:01 → EMR 21:19
DX: R10.13 Epigastric pain (principal); R68.2 Dry mouth, unspecified; D72.829 Elevated white blood cell count, unspecified; I45.10 Unspecified right bundle-branch block; I49.9 Cardiac arrhythmia, unspecified; E11.9 Type 2 diabetes mellitus without complications; I10 Essential (primary) hypertension; J44.9 Chronic obstructive pulmonary disease, unspecified; N28.1 Cyst of kidney, acquired; K74.60 Unspecified cirrhosis of liver
CPT/HCPCS: 36415; 74177; 80053; 81003; 83605; 83690; 85025; 93005; 96361; 96374; 96375; 99284; J2270; J2405; J7030; Q9965